=== PATIENT | female | born 1985 | race Caucasian/White ===

== ENCOUNTER 2021-03-29 10:48 | Emergency (ER) | payer BC, SELFPAY ==
--- NOTE | 2021-03-29 10:59 | ED.SKABFB ---
HPI - Skin/Abscess/Foreign Bdy General Chief complaint: Skin/Abscess/Foreign Body Stated complaint: Bump on Arm Time Seen by Provider: 03/29/21 10:59 Source: patient and RN notes reviewed Mode of arrival: ambulatory Limitations: no limitations History of Present Illness HPI narrative: 35-year-old female presents to the [facility] with complaints of a bump to her arm. Patient states she has had a bump on her arm for approximately 2 years, left upper arm just distal to the deltoid. Area is approximately 2 x 2 cm. For the last day or so turned red, painful. States she has had the similar episode in the past and was given antibiotics. Has an appointment with [facility] dermatology in [place] in 2 weeks Related Data Allergies Allergy/AdvReac Type Severity Reaction Status Date / Time No Known Allergies Allergy Verified 03/29/21 10:51 Review of Systems Review of Systems: All systems reviewed & are unremarkable except as noted in HPI and below Constitutional: Constitutional: Reports no additional constitutional complaints, Denies chills and Denies fever(s) Eyes: Eyes: Reports no additional eye complaints ENT: Reports system reviewed and no additional complaints, except as documented Cardiovascular: Cardiovascular: Reports no additional cardiovascular complaints Respiratory: Respiratory: Reports no additional respiratory complaints Gastrointestinal: Gastrointestinal: Reports no additional gastrointestinal complaints Musculoskeletal: Musculoskeletal: Reports no additional musculoskeletal complaints and Denies back pain Integumentary/Breasts: Skin/Breast: Reports as per HPI, Reports erythema and Denies rash Neurologic: Reports system reviewed and no additional complaints, except as documented, Denies vertigo, Denies dizziness and Denies headache(s) Psychiatric: Psychiatric: Reports no additional psychiatric complaints Allergic/Immunologic: Allergic/Immunologic: Reports no additional allergic/immunologic complaints [facility] Past Medical History Medical History (Updated 03/29/21 @ 19:13 by Raiza eTnorio) No significant medical problems Surgical History Surgical History (Updated 03/29/21 @ 19:13 by Raiza Tenorio) Hx of cholecystectomy 10/2020 Family History Family History Father Family history of elevated blood lipids Family history of diabetes mellitus in first degree relative Social History Social History Smoking status: Never smoker Alcohol intake: never Comments At the time of my signature, I reviewed and agree with the nursing past medical, surgical, social, and family history. There is no relevant family history pertinent to the patient complaint. Exam Const: General: healthy appearing, no acute distress and alert Nutritional Appearance: well nourished and obese Orientation/consciousness: patient oriented x3 Limitations: no limitations and altered mental status HENMT: Head: normal to inspection Ears: external ears normal Eyes: Conjunctivae: conjunctivae normal Pupils: Equal, round and reactive pupils present Neck: Neck: normal visual inspection, no lymphadenopathy and no meningeal signs Chest: Chest palpation & inspection: normal inspection of the chest Resp: Effort & Inspection: normal respiratory effort and no use of accessory muscles Auscultation: clear to auscultation bilaterally Cardio: Rate: regular rate Rhythm: regular rhythm Back/Spine/Pelvis: Back: no CVA tenderness Skin: General skin exam: normal color Rashes: no rashes Wounds: no wounds Other: Redness and cystlike structure left upper arm just distal to the deltoid measuring 2 x 2 cm. Warm to touch. No fluctuant area Neuro: General: patient oriented x3, moves all extremities, no meningeal signs and no focal motor deficits Speech: normal speech Gait exam (Neuro): Normal gait present Extrem: General: normal to
[2021-03-29 11:01] VITALS: BP 136/91; PULSE 82; RESP 16; TEMP 36.5; O2SAT 100
== END 2021-03-29 11:18 | disposition home or self-care (01) ==
PROVIDERS: Emergency Provider Nurse Practitioner
DX: L72.9 Follicular cyst of the skin and subcutaneous tissue, unspecified (principal); L03.114 Cellulitis of left upper limb
CPT/HCPCS: 99213; G0463

== ENCOUNTER 2022-06-24 09:54 | Emergency (ER) | payer BC, SELFPAY ==
--- NOTE | ~2022-06-24 | XR_ITS ---
XR chest 2V DATE: 06/24/2022 11:14 INDICATION: Productive cough, fever TECHNIQUE: PA and lateral views COMPARISON: 07/18/2013 PA and lateral chest FINDINGS: Surgical clips, right upper quadrant, consistent with cholecystectomy. Normal heart size. No hilar or mediastinal enlargement. No pulmonary infiltrate or consolidation, ple ural effusion or pulmonary vascular congestion or pneumothorax. IMPRESSION: No active cardiopulmonary disease Reviewed, dictated and finalized at location A. OR ARCHITECT/DESIGN MANAGER
[2022-06-24 10:01] VITALS: BP 126/79; PULSE 100; RESP 16; TEMP 39.3; O2SAT 99
--- NOTE | 2022-06-24 10:52 | ED.URI ---
HPI - URI/Sore Throat General Chief Complaint: Upper Respiratory Infection Stated Complaint: chest congestion Time Seen by Provider: 06/24/22 10:52 Source: patient, RN notes reviewed and old records reviewed Mode of arrival: ambulatory Limitations: no limitations History of Present Illness HPI Narrative: 29-year-old female presents to the [facility] with complaints of chest congestion fevers, wheezing since Monday, 2 days. Denies chest pain or shortness of breath. Related Data Home Medications Medication Instructions Recorded Confirmed Lactobacillus rhamnosus GG 15 1 cap PO DAILY 06/24/22 06/24/22 billion cell sprinkle capsule (Culturelle) cholecalciferol (vitamin D3) 25 25 mcg PO DAILY 06/24/22 06/24/22 mcg (1,000 unit) chewable tablet Allergies Allergy/AdvReac Type Severity Reaction Status Date / Time No Known Allergies Allergy Verified 06/24/22 10:15 Review of Systems Review of Systems: All systems reviewed & are unremarkable except as noted in HPI and below Constitutional: Constitutional: Reports as per HPI, Denies chills and Reports fever(s) Eyes: Eyes: Reports no additional eye complaints ENT: Reports as per HPI and Reports nasal congestion Cardiovascular: Cardiovascular: Reports no additional cardiovascular complaints Respiratory: Respiratory: Reports as per HPI, Denies chest congestion, Reports cough and Denies dyspnea Gastrointestinal: Gastrointestinal: Reports no additional gastrointestinal complaints Musculoskeletal: Musculoskeletal: Reports no additional musculoskeletal complaints Integumentary/Breasts: Skin/Breast: Reports system reviewed and no additional complaints, except as docu Neurologic: Reports system reviewed and no additional complaints, except as documented Psychiatric: Psychiatric: Reports no additional psychiatric complaints Allergic/Immunologic: Allergic/Immunologic: Reports no additional allergic/immunologic complaints [facility] Past Medical History Medical History (Updated 06/24/22 @ 11:46 by Raiza Tenorio APRN) No significant medical problems Surgical History Surgical History Hx of cholecystectomy 10/2020 Family History Family History Father Family history of elevated blood lipids Family history of diabetes mellitus in first degree relative Social History Social History Smoking status: Never smoker Alcohol intake: never Comments At the time of my signature, I reviewed and agree with the nursing past medical, surgical, social, and family history. There is no relevant family history pertinent to the patient complaint. Exam Const: General: comfortable, no acute distress, well developed, alert, ill appearing (mild) acutely and well nourished Nutritional Appearance: well nourished Orientation/consciousness: patient oriented x3 Limitations: no limitations HENMT: Head: normal to inspection Ears: external ears normal, TM's normal bilaterally and EAC's normal Face/Nose/Sinus: Normal external nose present and Normal nares present Face and sinus: normal facial exam and sinuses nontender Throat: posterior oropharynx normal and uvula midline Eyes: General: appearance normal, both eyes and all related structures Pupils: Equal, round and reactive pupils present Neck: Neck: normal visual inspection, full ROM, no lymphadenopathy and no meningeal signs Chest: Chest palpation & inspection: normal inspection of the chest Resp: Effort & Inspection: normal respiratory effort and no use of accessory muscles Auscultation: clear to auscultation bilaterally, no crackles, no rales, no rhonchi and wheezes expiratory wheezes (Right middle, right lower) Cardio: Rate: regular rate Rhythm: regular rhythm Back/Spine/Pelvis: Cervical Spine: cervical ROM normal and No Cervical spine tenderness Thoracic
[2022-06-24 10:55] VITALS: TEMP 39.3
[2022-06-24] MEDS: ACETAMINOPHEN 500 MG TABLET 1000 MG PO (10:55)
[2022-06-24 11:57] VITALS: PULSE 121; TEMP 38.4; O2SAT 96
== END 2022-06-24 11:57 | disposition home or self-care (01) ==
PROVIDERS: Emergency Provider Nurse Practitioner
DX: J40 Bronchitis, not specified as acute or chronic (principal)
CPT/HCPCS: 71046; 87804; 99213; A9270; G0463

== ENCOUNTER 2025-05-28 01:35 | Day surgery (SDC) | payer BC, SELFPAY ==
[2025-05-21 11:03] VITALS: BMI 36.1
--- NOTE | 2025-05-21 11:10 | PC.NURSE ---
[facility] has started construction of its new state of the art ER which will open Spring 2026. With this, we anticipate parking may be a challenge for some our surgical patients and families. Parking spaces are limited but are available for all Surgical, obstetrics, and ER patients sharing this lot. If you arrive and find you are having a hard time finding a parking space, please note that we understand the challenges, please drive around the hospital and park near Hospital Entrance 1. When you enter this entrance, you can ask a volunteer to direct or take you back to the surgical waiting area to check in. We appreciate everyone?s understanding of these expected challenges while we build for your future. Report to the Outpatient Waiting Room, entrance under the green pavilion located off [address], at time _0600_ on date _[id number]_. Planned Procedure Time: _0730_.? Time changes happen often and if your time is changed the preop area will call you the afternoon before. - You and your visitor will be asked to self-screen and do not enter if you have any COVID symptoms. Please call surgeon if you need to reschedule. - A mask is optional within the hospital at this time. Patients may have clear liquids (water, carbonated beverages, clear teas, apple juice) until 3 hours prior to surgery with a maximum of 20 ounces. - No food from midnight until time of surgery and no smoking, or chewing tobacco (or any form of nicotine). No chewing gum, candy or mints. Take only the following medications with a SIP of water on the morning of surgery: _Thyroid___ DO NOT STOP ANY OF YOUR OTHER PRESCRIPTION MEDICATIONS PRIOR TO SURGERY EXCEPT THE FOLLOWING Hold all vitamins and supplements for 3 days per anesthesiologist. Medications to discontinue per physician Skip Dose of Semaglutide this week. Date to take last dose Please no make-up, nail kiswahili, hairspray, perfume, deodorant, or body powder the day of surgery.? No jewelry (including any body piercings) or valuables the day of surgery, leave them at home.? Please take a shower or bath the night before, or the morning of, surgery with an antibacterial soap.? Wear comfortable, loose fitting clothing.? - Jewelry must be removed prior to entering the operating room.? Rings and piercings that are not removed may be cut off. - The hospital will not accept responsibility for valuables.? - Please leave all valuables, including medications, at home the day of surgery. If you are going home after surgery, a licensed four horse hitch driver must drive you home.? - NO public transportation without another adult if you receive anesthesia. - We recommend that an adult stay with you for 24 hours following discharge. - We also recommend that you do not drive, make important decision, drink alcoholic beverages, or take any drugs that were not prescribed by your health care provider for at least 24 hours after your discharge time. Follow any additional instructions given to you from your surgeon. Telephone instructions given to _Amy___and asked if any additional questions and then verbalized understanding. Patient advised to call surgeon office or pre surgery nurse liaison [phone] if any additional questions.
[2025-05-28] VITALS (11 sets, daily range): BP systolic 110–124; BP diastolic 58–75; PULSE 72–96; RESP 12–16; TEMP 36.5–37; O2SAT 98–100; BMI 36.7
--- OUTSIDE RECORDS SUMMARY | 2025-05-28 01:39 | XMS_ITS | Encounter Summary ---
Author Organization [facility] Facility Care Team Providers Care Product Scientist Name Role Phone No, Physician Primary Care Provider [phone] Chapo Angel DO Primary Care Provider + Chapo Angel DO Primary Care Provider + Lisa Barker MD Primary Care Provider [phone] Chapo Angel DO Primary Care Provider + Encounter Details Date Type Department Care Team (Latest Contact Info) Description 01/03/2018 Orders Only [facility] ProviderAndres MD [address] [place] [id number] Social History Tobacco Use Types Packs/Day Years Used Date Smoking Tobacco: Never Assessed Comments Unknown Sex and Gender Information Value Date Recorded Sex Assigned at Not on file Legal Sex Female 10:25 AM CDT Gender Identity Female 04/02/2019 12:48 PM CDT Sexual Orientation Not on file documented as of this encounter Plan of Treatment Not on file documented as of this encounter Procedures Procedure Name Priority Date/Time Associated Diagnosis Comments SCAN - PATHOLOGY 01/05/2018 12:0 0 AM CDT documented in this encounter Results * SCAN - PATHOLOGY (01/05/2018 12:00 AM CDT) Narrative 01/05/2018 12:00 AM CDT Ordered by an unspecified provider. Historical Provider Final Res ult documented in this encounter Visit Diagnoses Not on filedocumented in this encounter Additional Health Concerns Infection Onset Date Last Indicated Resolved Time COVID: Suspected 05/04/2024 05/04/2024 05/04/2024 2:56 PM CDT documented as of this encounter Care Teams Product Scientist Relationship Specialty Start Date End Date No, Physician PCP - General 03/14/18 01/23/19 Chapo Angel DO PCP - General 01/25/19 02/20/20 Chapo Angel DO PCP - General 01/24/19 01/24/19 Lisa Barker MD PCP - General 02/21/20 07/03/20 Chapo Angel DO PCP - General 07/04/20 documented as of this encounter
--- OUTSIDE RECORDS SUMMARY | 2025-05-28 01:39 | XMS_ITS | Clinical Summary ---
Author Organization [facility] at the [facility] Office Center Address [address] [place] [address] Care Team Providers Care Drapery Hand Name Role Phone JerseyTien Primary Care Provider + Allergies No known active allergies Medications cholecalciferol (VITAMIN D-3) 5,000 unit capsule Take 1 capsule (5,000 Units total) by mouth daily Active multivitamin capsule Take 1 capsule by mouth daily Active acidophilus-pectin , citrus 100 million cell-10 mg capsule Take by mouth towerman before breakfast Active thyroid (ARMOUR THYROID) 30 mg tablet 1 tablet (30 mg total) daily Active vitamin B complex capsule Take 1 capsule by mouth daily Active norethindrone (MICRONOR) 0.35 mg tabletIndications: Contraception Take 1 tablet (0.35 mg total) by mouth daily Active semaglutide (OZEMPIC) 0.25 mg or 0.5 mg(2 mg/1.5 mL) pen injector injection Inject 0.25 mg under the skin every 7 days Active ketorolac (TORADOL) 10 mg tablet Take 1 tablet (10 mg total) by mouth every 6 (six) hours as needed for pain 20 tablet 5 Active lidocaine (LIDODERM) 5 %Indications:Pain Place 1 patch on the skin daily for 12 hours Use patch for 12 hours on, 12 hours off. 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 This sounds viral. We will await the COVID test. Overall she is already improving we will go from there Annual physical exam 12/24/2020 Assessment & Plan (12/24/2020 3:16 PM CDT): Cbc Chem 7 Lipid lft tsh ua lh fsh Abnormal menses 12/24/2020 Assessment & Plan (12/24/2020 3:18 PM CDT): See Dr. 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 Barker Proteinuria 12/21/2018 Hypoalbuminemia 12/21/2018 Hemorrhagic cystitis 12/21/2018 Hemorrhagic cystitis 04/20/2018 Resolved Problems Problem Noted Date Diagnosed Date Resolved Date Hypoalbuminemia 01/10/2018 02/06/2019 Membranous glomerulonephritis 01/10/2018 02/06/2019 Nephrotic syndrome 01/01/2018 9 Obesity complicating pregnan cy in third trimester 09/11/2017 02/06/2019 Encounters Date Type Department Care Team Description 04/17/2025 9:55 AM CDT Lab [facility] [address] [place] [address] Membranous glomerulonephritis; Proteinuria, unspecified type; Nephrotic syndrome 04/17/2025 Results Follow-Up [facility] Nephrology at [place] [address] [place] [phone] Lisa Barker MD CBC with auto differential, Urinalysis reflex to microscopic and culture Urine, clean voided, Renal function panel, Additional followed-up results: 5 04/14/2025 6:48 PM CDT - 04/14/2025 7:32 PM CDT Emergency [facility] Emergency Department [address] [place] [address] Head injury, initial encounter (Primary Dx); Acute pain of left shoulder Discharge Disposition: Discharge to home or self care 03/21/2025 Telephone [facility] Nephrology at [address] [place] [address] Lisa Barker MD from Last 3 Months Immunizations Immunization Administration Dates Next Due Influenza, Unspecified 04/30/2022(Deferred: Ashley ent decision) Tdap 10/09/2017,11/13/2014 Surgical History Surgery Date Site/Laterality Comments CHOLECYSTECTOMY 10/16/2020 Medical History Medical History Date Comments Membranous glomerulonephritis Nephrotic syndrome Hypoalbuminemia Hemorrhagic cystitis Gallstones Family History Medical History Relation Name Comments Diabetes Father Heart disease Father Stroke Maternal Grandmother Relation Name Status Comments Father Maternal Grandmother Social History Tobacco Use Types Packs/Day Years Used Date Smoking Tobacco: Never Smokeless Tobacco: Never Tobacco Cessation:Counseling Given: Not Answered Alcohol Use Standard Drinks/Week Comments Not Currently 0 (1 standard drink = 0.6 oz pur e alcohol) AUDIT-C Answer Date Recorded Q1: How often do you have a drink containing alc ohol? Monthly or less 10/25/2022 Average Number of Drinks Not on file 023 Frequency of Binge Drinking Not on file 09/29 PHQ-2 Answer Date Recorded PHQ-2 Total Score (If total score is 3 or more points, staff should administer the PHQ-9) 0 08/23/2022 Personal Safety Answer Date Recorded Have you ever been in or are you currently in a harmful physical or emotional relationship or is someone making you feel afraid or unsafe? Denies 04/14/2025 Comments No Sex and Gender Information Value Date Recorded Sex Assigned at Not on file Legal Sex Female 10:25 AM CDT Gender Identity Female 04/02/2019 12:48 PM CDT Sexual Orientation Not on file Obstetrics History Para Term AB IAB SAB Ectopic Multiple Livin g Live Births 2 2 2 2 Date Outcome GA Total Labor Labor/2nd/3rd Weight Sex Type Anes PTL Thania A1 A5 Name Clin Term Term Last Filed Vital Signs Vital Sign Reading Time Taken Comments Blood Pressure 122/76 04/14/2025 6:40 PM CDT Pulse 75 04/14/2025 6:40 PM CDT Temperature 37.2 C (99 F) 04/14/2025 4:29 PM CDT Respiratory Rate 16 04/14/2025 6:40 PM CDT Oxygen Saturation 100% 04/14/2025 6:40 PM CDT Inhaled Oxygen Concentration - - Weight 106.7 kg (235 lb 3.7 oz) 04/14/2025 4:29 PM CDT Height 170.2 cm (5' 7) 04/14/2025 4:29 PM CDT Body Mass Index 36.84 04/14/2025 4:29 PM CDT Plan of Treatment Health Maintenance Due Date Last Done Comments Varicella Vaccines (1 of 2 - 13+ 2-dose series) 1997 Pneumococcal vaccine <65 (1 of 2 - PCV) 2003 HPV Vaccines (1 - 3-dose SCDM series) 2011 Cervical Cancer Screening 04/26/2018 04/26/2017 Breast Cancer Screening-Mammogram 01/22/2019 018 Regular Well Visit/Exam 18-64 12/24/2021 12/24/2020 Depression Screening 08/23/2023 08/23/2022 Covid-19 Vaccine ( - season) 2025, 11/26/2020 Influenza Vaccine (#1) 2025 DTaP/Tdap/Td Vaccine (4 - Td or Tdap) 10/10/2027 10/09/2017, 11/13/2014, 07/31/2014 Hepatitis B Screening Completed 01/02/2018 Hepatitis C Screening Completed 01/02/2018, 017 Procedures Procedure Name Priority Date/Time Associated Diagnosis Comments EGFR Routine 04/17/2025 10:00 AM CDT Proteinuria, unspecified type Nephrotic syndrome Membranous glomerulonephritis DIFFERENTIAL AUTO Routine 04/17/2025 10: 00 AM CDT Membranous glomerulonephritis Proteinuria, unspecified type Nephrotic syndrome RENAL FUNCTION PANEL Routine 04/17/2025 10:00 AM CDT Proteinuria, unspecified type Nephrotic syndrome Membranous glomerulonephritis CBC WITH AUTO DIFFERENTIAL Routine 04/17/2025 10:00 AM CDT Membranous glomerulonephritis Proteinuria, unspecified type Nephrotic syndrome URINALYSIS, MICROSCOPIC ONLY Routine 04/17/2025 9:57 AM CDT Membranous glomerulonephritis Proteinuria, unspecified type Nephrotic syndrome PROTEIN / CREATININE RATIO, URINE, RANDOM Routine 04/17/2025 9:57 AM CDT Proteinuria, unspecified type Nephrotic syndrome Membranous glomerulonephritis URINE CULTURE Routine 04/17/2025 9:57 AM CDT URINALYSIS AND REFLEX TO MICROSCOPIC AND CULTURE Routine 04/17/2025 9:57 AM CDT Membranous glomerulonephritis Proteinuria, unspecified type Nephrotic syndrome CT FACIAL BONES WO CONTRAST ED 04/14/2025 5:[address] HEAD WO CONTRAST ED 04/14/2025 5 :07 PM CDT XR SHOULDER LEFT 2 OR MORE VIEWS ED 04/14/2025 4:58 PM CDT SCREENING MAMMOGRAM 2D BILATERAL Routine 01/22/2018 10:10 AM CDT HEPATITIS PANEL, ACUTE Routine 01/02/2018 8:40 AM CDT THINPREP IMAGING PAP AND HPV MRNA E6/E7, CHLAMYDIA/N.GONORRH OEAE Routine 04/26/2017 11:46 AM CDT from Last 3 Months or Most Recently Relevant to Health Maintenance Results * eGFR (04/17/2025 10:00 AM CDT) eGFR 82 >=60 mL/min/1. 73 m2 Comment: Interpretive Data Reference Interval Normal >/= 90 mL/min/1.73m2 Mildly decreased* 60 - 89 mL/min/1.73m2 Mildly to moderately decreased 45 - 59 mL/min/1.73m2 Moderately to severely decreased 30 - 44 mL/min/1.73m2 Severely decreased 15 - 29 mL/min/1.73m2 Kidney Failure < 15 mL/min/1.73m2 *Relative to young adult level Estimated glomerular filtration rate is determined by the 2020 CKD-EPI equation recommended by the National Kidney Foundation (A Unifying Approach to GFR Estimation: Recommendations of the NKF-ASK Task Force on Reassessing the Inclusion of Race in Diagnosing Kidney Disease, JASN 2020). The CKD-EPI equation should not be used for patients with unstable renal function and has not been validated in children and those over 70. Current interpretive data was last reviewed 2021. Blood 04/17/2025 10:0 0 AM CDT 04/17/2025 10:10 AM CDT Lisa Barker MD LAB BLOOD ORDERABLES Final Result [place] [id number] Department [place] [address] * Differential, auto (04/17/2025 10:00 AM CDT) Neutrophil abs 3.55 1.50 - 6.50 K/cumm Imm gran abs 0.01 0.00 - 0.10 K/cumm [facility] Lymphocyte abs 2.39 0.80 - 3.30 K/cumm [facility] Monocyte abs 0.46 0.20 - 0.80 K/cumm [facility] Eosinophil abs 0.28 0.00 - 0.50 K/cumm [facility] Basophil abs 0.06 0.00 - 0.10 K/cumm [facility] Neutrophil pct 52.7 % [facility] Comment: Interpretive Data Percent cell count reference ranges are not reported, since discordance with absolute values may lead to misinterpretation of CBC data. Current Interpretive Data was last revised on 2017. Imm gran pct 0.1 % [facility] Comment: Interpretive Data Percent cell count reference ranges are not reported, since discordance with absolute values may lead to misinterpretation of CBC data. Current Interpretive Data was last revised on 2017. Lymphocyte pct 35.4 % [facility] Comment: Interpretive Data Percent cell count reference ranges are not reported, since discordance with absolute values may lead to misinterpretation of CBC data. Current Interpretive Data was last revised on 2017. Monocyte pct 6.8 % [facility] Comment: Interpretive Data Percent cell count reference ranges are not reported, since discordance with absolute values may lead to misinterpretation of CBC data. Current Interpretive Data was last revised on 2017. Eosinophil pct 4.1 % [facility] Comment: Interpretive Data Percent cell count reference ranges are not reported, since discordance with absolute values may lead to misinterpretation of CBC data. Current Interpretive Data was last revised on 2017. Basophil pct 0.9 % [facility] Comment: Interpretive Data Percent cell count reference ranges are not reported, since discordance with absolute values may lead to misinterpretation of CBC data. Current Interpretive Data was last revised on 2017. Blood 04/17/2025 10:0 0 AM CDT 04/17/2025 10:10 AM CDT Lisa Barker MD LAB BLOOD ORDERABLES Final Result [facility] [address] Department [place] [address] * CBC with auto differential (04/17/2025 10:00 AM CDT) WBC 6.75 3.80 - 9.90 K/cumm Hgb 13.2 11.9 - 15.5 g/dL [facility] Hct 40.2 35.6 - 45.5 % [facility] Plt 262 150 - 400 K/cumm [facility] MPV 11.7 9.1 - 12.3 fL [facility] RBC 4.51 3.90 - 5.20 M/cumm [facility] MCV 89.1 81.3 - 96.4 fL [facility] MCH 29.3 27.1 - 33.3 pg [facility] MCHC 32.8 32.3 - 35.7 g/dL [facility] RDW CV 13.3 11.1 - 14.9 % [facility] RDW SD 43.6 35.7 - 48.1 fL [facility] NRBC abs 0.00 0.00 - 0.01 K/cumm [facility] Blood 04/17/2025 10:0 0 AM CDT 04/17/2025 10:10 AM CDT Lisa Barker MD LAB BLOOD ORDERABLES Final Result [facility] [address] Department [place] [address] * (ABNORMAL) Renal function panel (04/17/2025 10:00 AM CDT) Sodium 138 135 - 145 mmol/L Potassium, pl 4.1 3.3 - 4.9 mmol/L [facility] Chloride 108 97 - 110 mmol/L [facility] CO2 20(L) 22 - 32 mmol/L [facility] Anion gap 10 2 - 15 mmol/L [facility] BUN 11 6 - 25 mg/dL [facility] Creatinine 0.91 0.60 - 1.10 mg/dL [facility] Glucose 89 70 - 199 mg/dL [facility] Comment: Interpretive Data Fasting glucose >/= 126 mg/dl is diagnostic for diabetes. Fasting is defined as no caloric intake for at least 8 hours. Fasting glucose between 100 mg/dl to 125 mg/dl is diagnostic of prediabetes. In a patient with classic symptoms of hyperglycemia or hyperglycemic crisis, a random glucose >/= 200 mg/dl is diagnostic for diabetes. In the absence of unequivocal hyperglycemia, results should be confirmed by repeat testing. The classification and Diagnosis of Diabetes Diabetes Care 202; 46: S19-S40. Current interpretive data was last revised 2022. Calcium 9.1 8.5 - 10.3 mg/dL [facility] Phosphorus, pl 3.8 2.3 - 4.5 mg/dL [facility] Albumin 3.7 3.5 - 5.0 g/dL [facility] Blood 04/17/2025 10:0 0 AM CDT 04/17/2025 10:10 AM CDT Result [facility] Lisa Barker MD LAB BLOOD ORDERABLES Final Result [facility] [address] [place] [address] * (ABNORMAL) Urinalysis reflex to microscopic and culture Urine, clean voided (04/17/2025 9:57 AM CDT) Color, ur Yellow Yellow Clarity, ur Cloudy(A) Clear [facility] Specific gravity, ur 1.020 1.003 - 1.030 [facility] pH, urine 5.5 [facility] Comment: Interpretive Data U rine pH is affected by diet, medications, systemic acid-base disturbances, and renal tubular function. pH may affect urinary stone formation. For example, urine pH below 6.0 may help reduce the tendency for calcium phosphate stones and pH greater than 6.0 may reduce the tendency for uric acid stone formation. Source: [facility] Current Interpretive Data was last revised on 2017 Protein, ur ql Negative Negative [facility] Glucose, ur ql Negative Negative [facility] Ketones, ur Negative Negative [facility] Bilirubin, ur Negative Negative [facility] Blood, ur 3+(A) Negative [facility] Urobilinogen, ur <2.0 <2.0 mg/dL [facility] Nitrite, ur Negative Negative [facility] Leukocyte esterase, ur 4+(A) Negative [facility] UA reflex comment Reflex to microscopic UA will be performed. [facility] Urine, clean voided 04/17/2025 9:57 AM CDT 04/17/2025 10:10 AM CDT Lisa Barker MD LAB MICROBIOLOGY - GENERAL ORDERABLES Final Result [facility] [address] Department [place] [address] * Protein / creatinine ratio, urine, random (04/17/2025 9:57 AM CDT) Protein, ur, quant 11.0 mg/dL Comment: Interpretive Data No reference range established. Current interpretive data was last revised 2018. Creatinine Ur 188.0 mg/dL [facility] Comment: Interpretive Data No reference range established. Current interpretive data was last revised 2018. Protein/creatinin e ratio 58.5 0.0 - 180.0 mg/g CR [facility] Urine 04/17/2025 9:57 AM CDT 04/17/2025 10:10 AM CDT Lisa Barker MD LAB URINE ORDERABLES Final Result Performing Organization Address [facility] Co de Phone Number [facility] [address] [employer] [place] [address] * (ABNORMAL) Urinalysis, microscopic only (04/17/2025 9:57 AM CDT) Pathologist [facility] WBC, ur >50(A) 0 - 5 /HPF RBC, ur 21-50(A) 0 - 2 /HPF [facility] Epithelial cells, squamous, ur 1-5 0 - 5 /HPF [facility] Bacteria, ur Trace(A) [facility] Mucous, ur Present(A) [facility] Culture Reflex Comment Reflex to urine culture will be performed. [facility] Urine, clean voided 04/17/2025 9:57 AM CDT 04/17/2025 10:10 AM CDT Lisa Barker MD LAB URINE ORDERABLES Final Result Performing Organization Address City/[facility] Co de Phone Number [address] [employer] [place], [place] [id number] * Urine culture Urine, clean voided (04/17/2025 9:57 AM CDT) Pathologist [facility] Report Final Report: Less than 100,000 colonies/mL (clinically insignificant growth based on current clinical standards) Comment:Testing performed by : [facility], [address] [facility] [place] [address] Organism (CLINICALLY INSIGNIFICANT GROWTH [facility] Urine, clean voided 04/17/2025 9:57 AM CDT 04/17/2025 2:27 PM CDT Narrative [facility] - 04/18/2025 3:06 PM CDT Urine culture reflexed based upon urinalysis results. Testing performed by [facility] Microbiology Laboratory ([phone]) Lisa Barker MD LAB MICROBIOLOGY - GENERAL ORDERABLES Final Result [facility] [address] Department [place] [address] * CT Facial Bones WO Contrast (04/14/2025 5:07 PM CDT) Anatomical Region Laterality Modality Head and Neck N/A Computed Tomogra phy 04/14/2025 6:27 PM CDT Narrative 04/14/2025 6:30 PM CDT EXAM DESCRIPTION: CT FACIAL BONES WO CONTRAST REASON FOR STUDY: Facial trauma, blunt c/o head injury today. 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 Pt states when she open the doors to the WC bus, the lift fell out and his her on the LT side of her face and top of LT shoulder. Pt having pain to those areas now TECHNIQUE: Noncontrast computed tomography images through the paranasal sinuses. Reconstructed MPR images reviewed. All images stored on PACS. Automated exposure control was used as a dose optimization technique for this examination. COMPARISON: None FINDINGS: BONES: No fracture or bone lesion. SOFT TISSUES: No abscess. No inflammatory changes. SINUSES: Mucosal thickening bilateral maxillary sinuses. There is fluid and/or mucosal thickening in the bilateral ethmoid and sphenoid sinuses. NASAL CAVITY: Midline nasal septum. ORBITS: No significant abnormalities visualized. TMJ: Normal. MASTOIDS: Well-aerated. IACs symmetric, grossly normal. BRAIN: Limited view. No acute findings. OTHER: No other significant finding. IMPRESSION: No CT evidence of facial bone fracture. THIS IS AN ELECTRONICALLY VERIFIED FINAL REPORT 04/14/2025 6:30 PM - Electronically signed by Diogenes Luna M.D. KT: JERED Report ID: [id number] Reading Location: [id number] Procedure Note Diogenes Luna MD - 04/14/2025 EXAM DESCRIPTION: CT FACIAL BONES WO CONTRAST REASON FOR STUDY: Facial trauma, blunt c/o head injury today. 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 Pt having pain to thoseareas now TECHNIQUE: Noncontrast computed tomography images through the paranasal sinuses. Reconstructed MPR images reviewed. All images stored on PACS. Automated exposure control was used as a dose optimization technique forthis examination. COMPARISON: None FINDINGS: BONES: No fracture or bone lesion. SOFT TISSUES: No abscess. No inflammatory changes. SINUSES: Mucosal thickening bilateral maxillary sinuses. There is fluid and/or mucosal thickening in the bilateral ethmoid and sphenoid sinuses. NASAL CAVITY: Midline nasal septum. ORBITS: No significant abnormalities visualized. TMJ: Normal. MASTOIDS: Well-aerated. IACs symmetric, grossly normal. BRAIN: Limited view. No acute findings. OTHER: No other significant finding. IMPRESSION: No CT evidence of facial bone fracture. THIS IS AN ELECTRONICALLY VERIFIED FINAL REPORT 04/14/2025 6:30 PM - Electronically signed by Diogenes Luna M.D. KT: JERED Report ID: [id number] Reading Location: [id number] Jeannette Marion NP IMG CT PROCEDURES Final Result * CT Head WO Contrast (04/14/2025 5:07 PM CDT) Anatomical Region Laterality Modality Head and Neck N/A Computed Tomogra phy 04/14/2025 6:30 PM CDT Narrative 04/14/2025 6:35 PM CDT EXAM DESCRIPTION: CT HEAD WO CONTRAST REASON FOR STUDY: Facial trauma, blunt c/o head injury today. 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 Pt states when she open the doors to the WC bus, the lift fell out and his her on the LT side of her face and top of LT shoulder. Pt having pain to those areas now TECHNIQUE: Axial images acquired through the brain without intravenous contrast. Images stored on PACS. Automated exposure control was used as a dose optimization technique for this examination. COMPARISON: None FINDINGS: BRAIN: No hemorrhage, edema or mass effect. No recent infarct. Normal white matter. EXTRA-AXIAL SPACES: No fluid collections. No masses. CALVARIUM: No fracture. SINUSES/MASTOIDS: No fluid or mucosal thickening. ORBITS: No significant abnormality. OTHER: No other significant abnormality. IMPRESSION: No acute intracranial findings. THIS IS AN ELECTRONICALLY VERIFIED FINAL REPORT 04/14/2025 6:35 PM - Electronically signed by Diogenes Luna M.D. KT: JERED Report ID: [id number] Reading Location: [place] [address] Procedure Note Diogenes Luna MD - 04/14/2025 EXAM DESCRIPTION: CT HEAD WO CONTRAST REASON FOR STUDY: Facial trauma, blunt c/o head injury today. 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 Pt having pain to thoseareas now TECHNIQUE: Axial images acquired through the brain without intravenous contrast. Images stored on PACS. Automated exposure control was used asa dose optimization technique for this examination. COMPARISON: None FINDINGS: BRAIN: No hemorrhage, edema or mass effect. No recent infarct. Normal white matter. EXTRA-AXIAL SPACES: No fluid collections. No masses. CALVARIUM: No fracture. SINUSES/MASTOIDS: No fluid or mucosal thickening. ORBITS: No significant abnormality. OTHER: No other significant abnormality. IMPRESSION: No acute intracranial findings. THIS IS AN ELECTRONICALLY VERIFIED FINAL REPORT 04/14/2025 6:35 PM - Electronically signed by Diogenes Metcalf.D. KT: JERED Report ID: [id number] Reading Location: [id number] Jeannette Marion CALENDER LET OFF OPERATOR IMG CT PROCEDURES Final Result * XR Shoulder Left 2+ views (04/14/2025 4:58 PM CDT) Anatomical Region Laterality Modality Upper Extremities, Shoulder Left Comp uted Radiography 04/14/2025 6:24 PM CDT Narrative 04/14/2025 6:27 PM CDT EXAM DESCRIPTION: XR SHOULDER LEFT 2 OR MORE VIEWS REASON FOR STUDY: pain Pt arrives by EMS from scene with c/o head injury today. 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 Pt states when she open the doors to the WC bus, the lift fell out and his her on the LT side of her face and top of LT shoulder. Pt having pain to those areas now. Abrasion noted to LT shoulder. Pt denies LOC. Pt does have COOPER that radiates down into her LT jaw TECHNIQUE: 4 radiographic view(s) of the left shoulder . COMPARISON: None FINDINGS: BONES/JOINTS: There is no acute fracture, malalignment or osseous abnormality. The joint spaces are normal. SOFT TISSUES: Within normal limits. IMPRESSION: No acute osseous abnormality. THIS IS AN ELECTRONICALLY VERIFIED FINAL REPORT 04/14/2025 6:27 PM - Electronically signed by Diogenes Luna M.D. KT: JERED Report ID: [id number] Reading Location: [id number] Procedure Note Diogenes Luna MD - 04/14/2025 EXAM DESCRIPTION: XR SHOULDER LEFT 2 OR MORE VIEWS REASON FOR STUDY: pain Pt arrives by EMS from scene with c/o head injury today. 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 Pt states when she open the doors to the [employer] bus, the lift fell out and his her on the LT side of her face and top ofLT shoulder. Pt having pain to those areas now. Abrasion noted to LTshoulder. Pt denies LOC. Pt does have COOPER that radiates down into her LT jaw TECHNIQUE: 4 radiographic view(s) of the left shoulder . COMPARISON: None FINDINGS: BONES/JOINTS: There is no acute fracture, malalignment orosseous abnormality. The joint spaces are normal. SOFT TISSUES: Within normal limits. IMPRESSION: No acute osseous abnormality. THIS IS AN ELECTRONICALLY VERIFIED FINAL REPORT 04/14/2025 6:27 PM - Electronically signed by Diogenes Luna M.D. KT: JERED Report ID: [id number] Reading Location: [place] [address] [address] Saritha Marion CALENDER LET OFF OPERATOR IMG XR PROCEDURES Final Result * Screening Mammogram 2D Bilateral (01/22/2018 10:10 AM CDT) Anatomical Region Laterality Modality Breast Bilateral Mammography 01/22/2018 10:1 0 AM CDT Impressions 01/22/2018 5:05 PM CDT BI-RAD 1 NEGATIVE There is no mammographic evidence of malignancy. A 7 year screening mammogram is recommended. The patient has been or will be contacted. The patient will be entered into a reminder system with a target due date of age 39 for her next mammogram, unless otherwise warranted by the [employer] Practice Parameter for the Performance of Screening and Diagnostic Mammography. Electronically signed by: Dr. Dane Barlow M.D. nh/:01/22/2018 17:04:18 Vertical Contour Band Saw Operator: Taylor RICHARDSON(Abel)(M), [facility] letter sent: Normal Exam Reading location: [facility] BI-RADS: 1 Negative [EOD] Narrative 01/22/2018 5:05 PM CDT - MG BILATERAL DIGITAL SCREENING MAMMOGRAM WITH MEDIOLATERAL OBLIQUE CRANIOCAUDAL: 01/22/2018 The study was acquired using full field digital technology and interpreted from soft copy. CLINICAL: Baseline mammogram. Denies any problems today. No personal history of breast cancer. No family history of breast cancer. COMPARISONS: None. BREAST TISSUE: There are scattered areas of fibroglandular density. FINDINGS: No significant masses, calcifications, or other findings are seen in either breast. Procedure Note Provider, Andres, - 12/16/2020 - MG BILATERAL DIGITAL SCREENING MAMMOGRAM WITH MEDIOLATERAL OBLIQUECRANIOCAUDAL: 01/22/2018 The study was acquired using full field digital technology and interpretedfrom soft copy. CLINICAL: Baseline mammogram. Denies any problems today. No personalhistory of breast cancer. No family history of breast cancer. COMPARISONS: None. BREAST TISSUE: There are scattered areas of fibroglandular density. FINDINGS: No significant masses, calcifications, or other findings areseen in either breast. IMPRESSION: BI-RAD 1 NEGATIVE There is no mammographic evidence of malignancy. A 7 year screeningmammogram is recommended. The patient has been or will be contacted. The patient will be entered into a reminder system with a target due dateof age 39 for her next mammogram, unless otherwise warranted by the [employer] Practice Parameter for the Performance of Screeningand Diagnostic Mammography. Electronically signed by: Dr. Dane Barlow M.D. nh/:01/22/2018 17:04:18 Vertical Contour Band Saw Operator: Taylor RICHARDSON(R)(M), [facility] letter sent: Normal Exam Reading location: [facility] BI-RADS: 1 Negative [EOD] us Destiny Brenner MD IM MAMMO PROCEDURES Final R esult * Hepatitis panel, acute (01/02/2018 8:40 AM CDT) HepBsAg NONREACT NONREACTIVE Comment: Siem[employer] CentaurXP using KARLA (chemiluminescent immunoassay) technology. NONREACTIVE: IgM antibodies to Hepatitis B Surface antigen not detected. REACTIVE: IgM antibodies to Hepatitis B Surface antigen detected. Reactive results will be confirmed by neutralization testing. HBsAb qn < 3.10 mIU/mL Comment: Siemens CentaurXP using KARLA (chemiluminescent immunoassay) technology. 9.99 IU/L or less.....NONREACTIVE: IgM antibodies to Hepatitis B Surface antibody are not detected. 10.00 IU/L or greater..REACTIVE: IgM antibodies to Hepatitis B Surface antibody are detected. Hep B core IgM NONREACT NONREACTIVE 8 12:52 PM CDT [facility] HISTORICAL RESULTS Comment: Siemens CentaurXP using KARLA (chemiluminescent immunoassay) technology. NONREACTIVE: IgM antibodies to Hepatitis B Core antigen not detected. EQUIVOCAL: IgM antibodies to Hepatitis B Core antigen may or may not be present. Obtain a new specimen and retest. REACTIVE: IgM antibodies to Hepatitis B Core antigen detected. Hep A IgM NONREACT NONREACTIVE Comment: Siemens CentaurXP using KARLA (chemiluminescent immunoassay) technology. NONREACTIVE: IgM antibodies to Hepatitis A not detected. This does not exclude possibility of exposure to Hepatitis A or early acute infection. EQUIVOCAL:IgM antibodies to Hepatitis A may or may not be present. Suggest recollection and retest. REACTIVE: Antibodies to Hepatitis A detected. Hep C Ab NONREACT NONREACTIVE Comment: Siemens CentaurXP using KARLA (chemiluminescent immunoassay) technology. NONREACTIVE: Antibodies to Hepatitis C not detected. This does not exclude early acute Hepatitis C infection, possibility of exposure to Hepatitis C, antibodies below detection limit, or to lack of antibody reactivity to the antigen used in this assay. EQUIVOCAL: Antibodies to Hepatitis C may or may not be present. Sample to be confirmed by real-time PCR method. REACTIVE: Antibodies to Hepatitis C detected. 01/02/2018 8:40 AM CDT 01/02/2018 9:00 AM CDT Jb Abdullahi MD LAB MICROBIOLOGY - GENERAL O RDERABLES Final Result [facility] HISTORICAL RESULTS * ThinPrep Imaging Pap and HPV mRNA E6/E7, Chlamydia/N.Gonorrhoeae (04/26/2017 11:46 AM CDT) CLINICAL INFORMATION [facility] HISTORICAL RESULTS Comment:Information not prov ided LMP: 02/23/17 [facility] HISTORICAL RESULTS PREV. PAP: [facility] HISTORICAL RESULTS Comment:FIRST PAP PREV. BX: [facility] HISTORICAL RESULTS Comment:CALENDER LET OFF OPERATOR SOURCE: [facility] HISTORICAL RESULTS Comment:Cervix, Endocervix STATEMENT OF ADEQUACY: [facility] HISTORICAL RESULTS Comment:Satisfactory for tyrell luation. Endocervical/transformation zone component present. INTERPRETATION/RES ULT: [facility] HISTORICAL RESULTS Comment:Negative for intraep ithelial lesion or malignancy. COMMENT: [facility] HISTORICAL RESULTS Comment:This Pap test has be en evaluated with computer assisted technology. DRILLING FIELD OPERATOR: [facility] HISTORICAL RESULTS Comment:AMW, CT(ASCP) CT scr eening location: [place] [address] [place] [address] HPV mRNA E6/E7 Not Detected Not Detected [facility] HISTORICAL RESULTS Comment: This test was performed using the APTIMA HPV Assay ([employer] This assay detects E6/E7 viral messenger RNA (mRNA) from 14 high-risk HPV types (16,18,31,33,35,39,45,51,52,56,58,59,66,68). C. trachomatis RNA NOT DETECTED NOT DETECTED [facility] HISTORICAL RESULTS N. gonorrhoeae RNA NOT DETECTED NOT DETECTED [facility] HISTORICAL RESULTS COMMENT [facility] HISTORICAL RESULTS Comment: This test was performed using the APTIMA COMBO2 Assay ([employer] The analytical performance characteristics of this assay, when used to test SurePath specimens have been determined by [employer]. 04/26/2017 11:4 6 AM CDT 05/01/2017 11:30 AM CDT Narrative [facility] HISTORICAL RESULTS - 05/01/2017 11:12 AM CDT 0 PERFORMING LAB: JOEL [employer] [place] [address] [facility] [id number] Alysa Ng MD Lore Rincon MD LAB PATHOLOGY ORDERABLES Final Result [facility] HISTORICAL RESULTS from Last 3 Months or Most Recently Relevant to Health Maintenance Insurance [employer] Address: [id number] [place] [address] [employer] Address: [place] [address] [employer] Address: [address] [place] [address] Care Teams Drapery Hand Relationship Specialty Start Date End Date Tien Angel DO PCP - General 07/04/20
--- OUTSIDE RECORDS SUMMARY | 2025-05-28 01:39 | XMS_ITS | Data Portability ---
Author Organization [facility] Address [address] [place] [address] Assessment No assessment recorded. Plan of Treatment Reminders Order Date Submit Date Provider Last Modified By Organization Details Last Modified Time Details Appointments SURG Hysterosc opy 2024 07:30A Tea PEPPER MD Not available Not available Not available SURG POST OP 2024 10:30A Tea PEPPER MD Not available Not available Not available Lab TSH, serum or plasma 2024 025 [facility] (Lab), [address], [place], [address], 03/12/2025 16:29:59 testoster one free/test osterone total, ratio, serum 2024 025 [facility] (Lab), [address], [place], [address], 03/12/2025 16:30:01 hormone panel, serum or plasma 2024 025 [facility] (Lab), [address] [place], [address], 03/12/2025 16:30:00 prolactin , serum 2024 025 [facility] (Lab), [address], [place], [address], 03/12/2025 16:29:59 progester one, serum 2024 025 [facility] (Lab), [address] [facility], [place], [address], 03/12/2025 16:29:59 dhea-sulf ate, serum 2024 025 [facility] (Lab), [address] [facility], [place], [address], 03/12/2025 16:29:58 CBC w/ auto diff 2024 025 [facility] (Lab), [address] [facility], [place], [address], 03/12/2025 16:29:58 HbA1c (hemoglob in A1c), blood 2024 025 [facility] (Lab), [address] [facility], [place], [address], 03/12/2025 16:30:00 CMP, serum or plasma 2024 025 [facility] (Lab), [address] [facility], [place], [address], 03/12/2025 16:29:58 Referral None recorded. Procedures None recorded. Surgeries hysterosc opy, with endometri al ablation (SURG) 2024 025 [facility], [address], [address], 04/04/2025 18:47:31 salpingec zuly, laparosco pic (SURG) 2024 025 [facility], [address], [place], [address], 04/04/2025 16:47:44 Imaging US, pelvis 2024 025 [email or web address] [place], [address], [address], [place], [address], 03/11/2025 19:39:34 US, transvagi nal 2024 025 [email or web address] [place], [address], [address], [place], [address], 03/11/2025 19:39:34 Medication Orders None recorded. Patient TargetsNo targets recorded. Patient InstructionsNo instructions recorded. Reason for Referral None Reported. Results Created Date Observation Date Name Description Value Unit Range Abnormal Flag Note LastModifiedBy Organization Detail LastModifiedTime 03/06/2003/06/2025 CBC W/DIF F WBC 6.2 10'3/ uL 3.5-10 .5 Not Available [facility] (Lab) [address], [place], [address], 03/12/2025 16:29:58 03/06/20 25 03/06/2025 CBC W/DIF F RBC 4.53 10'6/ uL (based on docume nted legal sex) 3.80-5 .20 Not Available [facility] (Lab) [address], [place], [address], 03/12/2025 16:29:58 03/06/20 25 03/06/2025 CBC W/DIF F HGB 13.7 g/dL (based on docume nted legal sex) 11.6-1 5.4 Not Available [facility] (Lab) [address], [place], [address], 03/12/2025 16:29:58 03/06/20 25 03/06/2025 CBC W/DIF F HCT 42.0 % (based on docume nted legal sex) 34.0-4 5.0 Not Available [facility] (Lab) [address] [place], [address], 03/12/2025 16:29:58 03/06/20 25 03/06/2025 CBC W/DIF F MCV 92.7 fL 80.0-9 9.0 Not Available [facility] (Lab) [address] [place], [address], 03/12/2025 16:29:58 03/06/20 25 03/06/2025 CBC W/DIF F MCH 30.2 pg 27.0-3 4.0 Not Available [facility] (Lab) [address] [facility], [place], [address], 03/12/2025 16:29:58 03/06/20 25 03/06/2025 CBC W/DIF F MCHC 32.6 g/dL 32.0-3 5.5 Not Available [facility] (Lab) [address] [facility], [place], [address], 03/12/2025 16:29:58 03/06/20 25 03/06/2025 CBC W/DIF F RDW 13.9 % 11.0-1 5.0 Not Available [facility] (Lab) [address] [facility], [place], [address], 03/12/2025 16:29:58 03/06/20 25 03/06/2025 CBC W/DIF F plt 265 10'3/ uL 150-40 0 Not Available [facility] (Lab) [address] [facility], [place], [address], 03/12/2025 16:29:58 03/06/20 25 03/06/2025 CBC W/DIF F MPV 12.3 fL 8.8-12 .1 high Not Available [facility] (Lab) [address] [facility], [place], [address], 03/12/2025 16:29:58 03/06/20 25 03/06/2025 CBC W/DIF F NRBC's 0.0 % 0.0 Not Available [facility] (Lab) [address] [facility], [place], [address], 03/12/2025 16:29:58 03/06/20 25 03/06/2025 CBC W/DIF F absolute NRBCs 0.0 10'3/ uL no refere nce range establ ished Not Available [facility] (Lab) [address] [facility], [place], [address], 03/12/2025 16:29:58 03/06/20 25 03/06/2025 CBC W/DIF F neutrophils 56.4 % 34.0-7 3.0 Not Available [facility] (Lab) [address] [facility], [place], [address], 03/12/2025 16:29:58 03/06/20 25 03/06/2025 CBC W/DIF F lymphocytes 33.1 % 15.0-5 0.0 Not Available [facility] (Lab) [address] [facility], [place], [address], 03/12/2025 16:29:58 03/06/20 25 03/06/2025 CBC W/DIF F monocytes 6.5 % 1.0-15 .0 Not Available [facility] (Lab) [address] [facility], [place], [address], 03/12/2025 16:29:58 03/06/20 25 03/06/2025 CBC W/DIF F eosinophils 2.7 % 0.0-8. 0 Not Available [facility] (Lab) [address] [facility], [place], [address], 03/12/2025 16:29:58 03/06/20 25 03/06/2025 CBC W/DIF F basophils 1.1 % 0.0-2. 0 Not Available [facility] (Lab) [address] [facility], [place], [address], 03/12/2025 16:29:58 03/06/20 25 03/06/2025 CBC W/DIF F immature granulocytes 0.2 % no define d refere nce range Immat ure Granu locyt es (IG) repre sents autom ated enume ratio n of Metam yeloc ytes, Myelo cytes and Promy elocy nicky when IG is < 5%. Blast s are not inclu ded in IG and repor deejay separ ately if prese nt. Not Available [facility] (Lab) [address] [facility], [place], [address], 03/12/2025 16:29:58 03/06/20 25 03/06/2025 CBC W/DIF F absolute neutrophils 3.5 10'3/ uL 1.5-8. 0 Not Available [facility] (Lab) [address], [place], [address], 03/12/2025 16:29:58 03/06/20 25 03/06/2025 CBC W/DIF F absolute lymphocytes 2.1 10'3/ uL 1.0-4. 0 Not Available [facility] (Lab) [address] [facility], [place], [address], 03/12/2025 16:29:58 03/06/20 25 03/06/2025 CBC W/DIF F absolute monocytes 0.4 10'3/ uL 0.2-1. 0 Not Available [facility] (Lab) [address], [place], [address], 03/12/2025 16:29:58 03/06/20 25 03/06/2025 CBC W/DIF F absolute eosinophils 0.2 10'3/ uL 0.0-0. 6 Not Available [facility] (Lab) [address], [place], [address], 03/12/2025 16:29:58 03/06/20 25 03/06/2025 CBC W/DIF F absolute basophils 0.1 10'3/ uL 0.0-0. 3 Not Available [facility] (Lab) [address] [facility], [place], [address], 03/12/2025 16:29:58 03/06/20 25 03/06/2025 CBC W/DIF F absolute immature granulocytes 0.0 10'3/ uL 0.00-0 .10 Refer ence range s for nonbi nary/ inter sex or unspe cifie d gende r patie nts have not been estab lishe d. Pleas e refer [facility] for range s estab lisanastasia d for cisge nder patie nts and evalu ate in the clini carmen tio xt of the indiv idual patie nt: https :[email or web address] hall book. nm.or g/gen derx Not Available [facility] (Lab) [address] [facility], [place], [address], 03/12/2025 16:29:58 03/06/20 25 03/06/2025 CMP(C OMPRE HENSI VE METAB OLIC PANEL ) sodium 140 mmol/ L 133-14 6 Not Available [facility] (Lab) [address] [facility], [place], [address], 03/12/2025 16:29:58 03/06/20 25 03/06/2025 CMP(C OMPRE HENSI VE METAB OLIC PANEL ) potassium 4.1 mmol/ L 3.5-5. 1 Not Available [facility] (Lab) [address] [facility], [place], [address], 03/12/2025 16:29:58 03/06/20 25 03/06/2025 CMP(C OMPRE HENSI VE METAB OLIC PANEL ) chloride 106 mmol/ L 98-107 Not Available [facility] (Lab) [address] [facility], [place], [address], 03/12/2025 16:29:58 03/06/20 25 03/06/2025 CMP(C OMPRE HENSI VE METAB OLIC PANEL ) carbon dioxide 27 mmol/ L 21-31 Not Available [facility] (Lab) [address] [facility], [place], [address], 03/12/2025 16:29:58 03/06/20 25 03/06/2025 CMP(C OMPRE HENSI VE METAB OLIC PANEL ) anion gap 7 mmol/ L 4-13 Not Available [facility] (Lab) [address] [place], [address], 03/12/2025 16:29:58 03/06/20 25 03/06/2025 CMP(C OMPRE HENSI VE METAB OLIC PANEL ) blood urea nitrogen 12 mg/dL 7-25 Not Available [facility] (Lab) [address] [facility], [place], [address], 03/12/2025 16:29:58 03/06/20 25 03/06/2025 CMP(C OMPRE HENSI VE METAB OLIC PANEL ) creatinine 0.81 mg/dL 0.60-1 .30 Not Available [facility] (Lab) [address] [facility], [place], [address], 03/12/2025 16:29:58 03/06/20 25 03/06/2025 CMP(C OMPRE HENSI VE METAB OLIC PANEL ) egfrcr (CKD-epi 2020) >90 mL/mi n/1.7 3_m2 >=60 Not Available [facility] (Lab) [address] [facility], [place], [address], 03/12/2025 16:29:58 03/06/20 25 03/06/2025 CMP(C OMPRE HENSI VE METAB OLIC PANEL ) calcium 9.8 mg/dL 8.3-10 .5 Not Available [facility] (Lab) [address] [facility], [place], [address], 03/12/2025 16:29:58 03/06/20 25 03/06/2025 CMP(C OMPRE HENSI VE METAB OLIC PANEL ) glucose 74 mg/dL 70-100 Not Available [facility] (Lab) [address] [facility], [place], [address], 03/12/2025 16:29:58 03/06/20 25 03/06/2025 CMP(C OMPRE HENSI VE METAB OLIC PANEL ) protein, total 6.2 g/dL 6.4-8. 3 low Not Available [facility] (Lab) [address] [facility], [place], [address], 03/12/2025 16:29:58 03/06/20 25 03/06/2025 CMP(C OMPRE HENSI VE METAB OLIC PANEL ) albumin 3.9 g/dL 3.5-5. 0 Not Available [facility] (Lab) [address] [facility], [place], [address], 03/12/2025 16:29:58 03/06/20 25 03/06/2025 CMP(C OMPRE HENSI VE METAB OLIC PANEL ) ALT 15 units /L 9-43 Not Available [facility] (Lab) [address] [facility], [place], [address], 03/12/2025 16:29:58 03/06/20 25 03/06/2025 CMP(C OMPRE HENSI VE METAB OLIC PANEL ) alkaline phosphatase 53 units /L 34-104 Not Available [facility] (Lab) [address] [facility], [place], [address], 03/12/2025 16:29:58 03/06/20 25 03/06/2025 CMP(C OMPRE HENSI VE METAB OLIC PANEL ) AST 16 units /L 13-39 Not Available [facility] (Lab) [address] [facility], [place], [address], 03/12/2025 16:29:58 03/06/20 25 03/06/2025 CMP(C OMPRE HENSI VE METAB OLIC PANEL ) bilirubin, total 0.3 mg/dL 0.2-1. 2 Not Available [facility] (Lab) [address] [place], [address], 03/12/2025 16:29:58 03/06/20 25 03/06/2025 DHEA SULFA TE DHEA-sulfate 87 ug/dL Femal e Range s Age(y ) Range (ug/d L) 10-15 34-28 0 15-20 65-36 8 20-25 148-4 07 25-35 99-34 0 35-45 61-33 7 45-55 35-25 6 55-65 19-20 5 65-75 9-246 > 75 12-15 4 Not Available [facility] (Lab) [address] [facility], [place], [address], 03/12/2025 16:29:58 03/06/20 25 03/06/2025 TSH, REFLE X FREE T4 TSH 2.68 uIU/m L 0.30-5 .33 Not Available [facility] (Lab) [address], [place], [address], 03/12/2025 16:29:59 03/06/20 25 03/06/2025 PROGE STERO NE progesterone 1.45 NG/mL This assay was perfo rmed using [employer] ratio n reage nts and test kits. Value s obtai luz with other assay metho ds or kits canno t be used inter smith eay . Femal e Proge stero ne Range s: Folli cular phase 0.06- 0.89 ng/mL Ovula tion phase 0.12- 12.00 ng/mL Lutea l phase 1.83- 23.90 ng/mL Postm enopa usal <0.05 -0.13 ng/mL Healt hy Pregn ant Women 1st Trime ster 11.0- 44.30 2nd Trime ster 25.40 -83.3 0 3rd Trime ster 58.70 -214. 00 Not Available [facility] (Lab) [address] [facility], [place], [address], 03/12/2025 16:29:59 03/06/20 25 03/06/2025 PROLA CTIN prolactin, total 17.60 NG/mL 4.79-2 3.30 This assay was perfo rmed using [employer] ratio n reage nts and test kits. Value s obtai luz with other assay metho ds or kits canno t be used inter smith eay . Not Available [facility] (Lab) [address] [facility], [place], [address], 03/12/2025 16:29:59 03/06/20 25 03/06/2025 FSH, LH, ESTRA DIOL estradiol 386.0 pg/mL This assay was perfo rmed using [employer] reage nts and test kits. Value s obtai luz with other assay metho ds or kits canno t be used inter [facility] . Femal e Estra diol Range s: Folli cular phase 12.4- 233 pg/mL Ovula tion phase 41.0- 398 pg/mL Lutea l phase 22.3- 341 pg/mL Postm enopa usal <5-13 8 pg/mL Healt hy Pregn ant Women 1st Trime ster 154-3 243 pg/mL 2nd Trime ster 1561- 18177 pg/mL 3rd Trime ster 8525- >3000 0 pg/mL Not Available [facility] (Lab) [address] [place], [address], 03/12/2025 16:30:00 03/06/20 25 03/06/2025 FSH, LH, ESTRA DIOL FSH 5.8 mIU/m L This assay was perfo rmed using [employer] ratio n reage nts and test kits. Value s obtai luz with other assay metho ds or kits canno t be used inter [facility] . Femal es Folli cular : 3.5-1 2.5 mIU/m L Ovula tion: 4.7-2 1.5 mIU/m L Lutea l: 1.7-7 .7 mIU/m L Postm enopa use: 25.8- 134.8 mIU/m L Not Available [facility] (Lab) [address] [place], [address], 03/12/2025 16:30:00 03/06/20 25 03/06/2025 FSH, LH, ESTRA DIOL LH 8.1 mIU/m L This assay was perfo rmed using [employer] reage nts and test kits. Value s obtai luz with other assay metho ds or kits canno t be used inter [facility] . Femal es Mid-F ollic ular: 2.4-1 2.6 mIU/m L Mid-C ycle: 14.0- 95.6 mIU/m L Mid-L uteal : 1.0-1 1.4 mIU/m L Postm enopa use: 7.7-5 8.5 mIU/m L Not Available [facility] (Lab) [address], [place], [address], 03/12/2025 16:30:00 03/06/20 25 03/06/2025 HEMOG LOBIN A1C hemoglobin A1C 5.1 % 4.0-5. 6 The Ameri can Diabe nicky Assoc iatio n recom mends that a prima ry goal of thera py shoul d be a HBA1C of < 7% and that physi cians shoul d reeva luate the treat ment regim en in patie nts with HBA1C value s consi stent ly > 8%. <5.7% Moraima l 5.7 - 6.4% Incre ased risk for diabe nicky >=6.5 % Diagn ostic of diabe nicky <7.0% Goal of thera py >8.0% Actio n sugge sted Not Available [facility] (Lab) [address], [place], [address], 03/12/2025 16:30:00 03/06/20 25 03/06/2025 TESTO STERO NE, FREE( DIALY SIS) AND TOTAL (LC/M S/MS) testosterone , total 26 NG/dL 2-45 For addit ional infor violet banks e refer to http: //[facility] kassi lundque stdia gnost ics.c om/fa q/ Total Testo stero neLCM SMSFA Q165 (This link is being provi ded for infor foreign nal/ educa clyde l purpo ses only. ) This test was devel oped and its brian tical perfo rmanc e antonella cteri stics have been deter mined by [facility] kostas Baueri [place]. It has not been clear ed or appro tru by the U.S. Food and Drug Admin istra tion. This assay has been valid ated pursu ant to the CLIA regul ation s and is used for clini carmen purpo ses. Not Available [facility] (Lab) [address] [facility], [place], [address], 03/12/2025 16:30:01 03/06/20 25 03/06/2025 TESTO STERO NE, FREE( DIALY SIS) AND TOTAL (LC/M S/MS) testosterone , free 2.0 pg/mL 0.1-6. 4 This test was devel karsten and its brian tical perfo rmanc e antonella cteri stics have been deter mined by [employer] kostas s [place], [place]. It has not been clear ed or appro tru by the U.S. Food and Drug Admin istra tion. This assay has been valid ated pursu ant to the CLIA regul ation s and is used for clini carmen purpo ses. Perfo rming Organ izati on Infor matio n: Site ID: [id number] Name: [employer] ostyuli s [facility] Addre ss: [id number] [place], [place] Direc tor: Sam Stevens MD PhD Not Available [facility] (Lab) [address] [facility], [place], [address], 03/12/2025 16:30:01 03/11/20 25 03/11/2025 US, pelvi s No observ ation record ed. [facility] [address], [place], [address], 03/11/2025 18:12:51 03/11/2003/11/2025 US, trans vagin al No observ ation record ed. [facility] [address], [place], [address], 03/11/2025 18:13:00 03/11/20 25 03/11/2025 US, pelvi s No observ ation record ed. [email or web address] [id number], [place], [address], 03/19/2025 13:12:17 Result Notes None recorded. Procedures Surgical History Date Name Laterality Status Provider Name and Address Organization Details Recorded Time 07/31/19 20 Cholecystectomy completed [facility] 03/06/2025 12:37:44 Imaging Results None recorded. Procedure Notes None recorded. Medical Equipment None Reported. Allergies No known drug allergies Medications Name Sig Start Date Stop Date Status Note LastModified by Organization Details LastModified Time [facility] Thyroid 60 mg tablet TAKE 1 TABLET BY MOUTH DAILY ON AN EMPTY STOMACH active Not Available Not Available No t Available metformin 500 mg tablet TAKE 1 TABLET BY MOUTH DAILY active Not Available Not Available No t Available progesterone micronized 200 mg capsule TAKE 1 CAPSULE BY MOUTH AT BEDTIME active Not Available Not Available No t Available [facility] Thyroid 30 mg tablet TAKE 1 TABLET BY MOUTH IN THE MORNING AND 30 MINUTES BEFORE EATING ON AN EMPTY STOMACH 03/06 completed Not Available Not Available Not Available progesterone micronized 100 mg capsule TAKE 1 CAPSULE BY MOUTH AT NIGHT 03/06 completed Not Available Not Available Not Available amoxicillin 875 mg-potassium clavulanate 125 mg tablet TAKE 1 TABLET BY MOUTH EVERY 12 HOURS 03/06 completed Not Available Not Available Not Available neomycin 3.5 mg/g-polymyx in B 10,000 unit/g-dexam eth 0.1 % eye oint APPLY SMALL AMOUNT TO THE EYELID EVERY NIGHT AT BEDTIME 03/06 completed Not Available Not Available Not Available semaglutide (weight loss) active Not Available Not Available Not Available Omnipod 5 G6-G7 Pods (Gen 5) subcutaneous cartridge CHANGE EVERY 48 HOURS active Not Available Not Available No t Available Vitals Date Recorded Body weight Body mass index (BMI) Body height Systolic And Diastolic Provider Name and Address Organization Details Last Updated DateTime 03/06/2025 655041.39 g 37.1 kg/m2 170.18 cm 111/73 mm[Hg] [facility] 03/06/2025 12:33:47 Date Recorded Body height Body mass index (BMI) Body weight Systolic And Diastolic Provider Name and Address Organization Details Last Updated DateTime 03/19/2025 170.18 cm 36.5 kg/m2 800090.3 g 110/76 mm[Hg] [facility] 03/19/2025 12:26:30 Date Recorded Body height Body mass index (BMI) Body weight Systolic And Diastolic Provider Name and Address Organization Details Last Updated DateTime 04/04/2025 170.18 cm 37 kg/m2 783793.8 g 130/81 mm[Hg] Dayana Salo [facility] 04/04/2025 12:01:34 Social History Question Answer Notes LastModified by Organizat ion Details LastModified Time Tobacco Smoking Status Never Smoker Marilee Masterson ivette, [facility] 03/06/2025 12:36:47 Are You Blind Or Do You Have Difficulty Seeing? No Information n ot available 03/06/2025 What Is Your Level Of Caffeine Consumption? Moderate [email or web address] Information not available 03/06/2025 In The 14 Days Before Symptom Onset, Have You Had Close Contact With A Laboratory-confirm ed COVID-19 While That Case Was Ill? No [email or web address] Information n ot available 03/06/2025 In The 14 Days Before Symptom Onset, Have You Had Close Contact With A Person Who Is Under Investigation For COVID-19 While That Person Was Ill? No [email or web address] Information not available 03/06/2025 Have You Been To An Area Known To Be High Risk For COVID-19? No [email or web address] Information not available 03/06/2025 Are You Deaf Or Do You Have Serious Difficulty Hearing? No [email or web address] Information not available 03/06/2025 What Type Of Diet Are You Following? REGULAR [email or web address] Information n ot available 03/06/2025 What Is The Highest Grade Or Level Of School You Have Completed Or The Highest Degree You Have Received? [id number] [email or web address] Information not available 03/19/2025 Are There Any Guns Present In Your Home? No [email or web address] Information not available 03/19/2025 Do You Use Protection During Sex? No [email or web address] Information not available 03/06/2025 Do You Use Your Seat Belt Or Car Seat Routinely? Yes [email or web address] Information not available 03/06/2025 Are You Sexually Active? Yes [email or web address] Information not available 03/06/2025 Do You Have Smoke And Carbon Monoxide Detectors In Your Home? Yes [email or web address] Information not available 03/06/2025 How Much Tobacco Do You Smoke? No [email or web address] Information not available 03/19/2025 Do You Use Sunscreen Routinely? Yes [email or web address] Information not available 03/06/2025 Have You Used IV Drugs? No [email or web address] Information not available 03/19/2025 Do You Have Difficulty Walking Or Climbing Stairs? No [email or web address] Information not available 03/06/2025 Sex: Unknown Functional Status Question Answer Note LastModified by Organizat ion Details LastModified Time Do you use any illicit or recreational drugs? No Information not available 03/19/2025 What is your level of alcohol consumption? 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 YESWOREST [email or web address] Information not available 03/06/2025 Are you able to care for yourself independently? 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 No Information not available 03/06/2025 What is your exercise level? Moderate [email or web address] Information not available 03/19/2025 Mental Status Question Answer Note LastModified by Organization D etails LastModified Time Do you feel stressed (tense, restless, nervous, or anxious, or unable to sleep at night)? [id number] [email or web address] Information not available 04/04/2025 Family History Relationship Description Onset Age of this Age Resolved Age Notes LastModified by Organization Details LastModified Time Father Heart disease [email or web address] Not available 2024 12:36:01 Father Diabetes mellitus [email or web address] Not available 2024 12:36:11 Father Hypercholest [email or web address] Not available 2024 12:36:28 Father Essential hypertension [email or web address] Not available 0 04/04/2025 11:25:56 Mother Hypercholest erolemia [email or web address] Not available 2024 12:36:28 Medical History Condition Response Allergies (Food, seasonal, environmental ) N Other N Breast Cancer N Drug/Latex Allergies/Reactions N Blood Transfusion N Dermatologic Disorders N Lung Disease N Defects or Inherited Disease N Breast Problem N Gestational Diabetes N Hematologic disorders N Anesthesia Complications N History of STI N Deep Vein Thrombosis N Polycystic ovary syndrome N Anxiety Disorder N Autoimmune disease N Arthritis N Infertility N Polyps N Acid Reflux (GERD) N History of abnormal pap N Cancer N Stroke N Varicosities N Neurologic/Epilepsy N Endometriosis N High Cholesterol N Headaches N Fibromyalgia N Kidney Disease Y Heart Problems N Kidney or Bladder Problems N Thyroid Problems N GI Problems N Eating Disorder N Anemia N Art (IVF or FET) N Psychiatric Illness N Ovarian Cancer N Diabetes N Pulmonary (TB, Asthma) N Hepatitis/Liver Disease N No Past Medical History N Eczema N Urinary Tract Infection N Abuse/Domestic Violence N Asthma N Trauma/Violence N Depression/ depression N Heart Disease N Pre-Eclampsia N Hypertension N Osteoporosis N Thrombophilias N Gynecological History Statement/Question Response Abnormal Pap N Flow Heavy Date of LMP 03/26/2025 N Was last menstrual period normal Y STIs/STDs N Duration of Flow (days) 5 Current Control Method None Age at First Child 30 Are cycles usually normal Y Frequency of Cycle (Q days) 23 Sexually Active? Y Menses Monthly Y Age of first menstrual cycle 9 Date of Last Pap Smear Sexual Problems? Y Desired Control Method Ablation LMP Definite Obstetrics History GPAL:G 2 P 2 0 0 2 Type Value Full Term 2 Living 2 Total 2 Past Encounters Encounter ID Performer Location Encounter Start Date Encounter Closed Date Diagnosis/Indication Diagnosis SNOMED-CT Code Diagnosis ICD10 Code Diagnosis IMO Codes Diagnosis Note [id number] DOREEN JUAN NP [place] [address] [address] 03/06/2025 12:17:33 03/06/2025 13:46:24 Abnormal uterine bleeding [id number] 9100 N93.9 [id number] The patient and I discussed the various causes of abnormal uterine bleeding, including polyps, fibroids, hyperplasi a, atypia, anovulatio n, etc.We reviewed the typical evaluation with labs, pelvic US and possible endometria l biopsy.Avani efly discussed the options available for treatment (depending on the results of evaluation ) such as hormonal treatment (OCPs, progestins ), Mirena, endometria l ablation, and surgery. We spent more than 30 minutes face to face.Pelvi c ultrasound and labs ordered.Chapin mota to RTO for ultrasound f/u and to discuss next steps in treatment plan. [id number] Rui Pepper MD [place] [address],[place] [address] 03/11/2025 17:14:45 03/11/2025 18:06:57 Abnormal uterine bleeding [id number] 9100 N93.9 [id number] DOREEN JUAN NP [place] [address] [address] 03/19/2025 12:19:15 03/19/2025 13:39:08 Menorrhagia [id number] N92.0 [id number] -Discussed that labs were overall normal- Pelvic ultrasound showed 2 cm hemorrhagi c appearing corpus luteum/cys t, which could be due to ovulation- Patient currently takes progestero ne 200 mg PO nightly that was prescribed by another clinic-Rev iewed all treatment options for menorrhagi a and dysmenorrh ea, including: IUD's, Patch, Ring, Pills, Nexplanon, Lysteda; Endometria l ablation (requires MD consult). We discussed if any are contraindi cated with her current health Hx.-Tyron ghosh interested in MD consult for endometria l ablation and bilateral salpingect Agnieszka ghosh scheduled- Patient to call office with any questions or concerns [id number] Rui Pepper MD [place] [address] [address] 04/04/2025 11:25:52 04/04/2025 12:27:09 Menorrhagia [id number] N92.0 [id number] This patient is a 39-year-ol d female presents for heavy vaginal bleeding. She has longstandi ng very heavy bleeding. Her menses are regular. However, they require double protection . Patient has accidents, getting blood on her bedding and clothing. Is affected work. She changes a pad or tampon every hour. She leaks blood around the pad and tampon. This bleeding has a profound impact on her quality of life and her activities of daily living. we discussed treatment options. Patient desires endometria l ablation. We agreed to proceed with endometria l ablation and bilateral salpingect amandeep /laparosco pic. The patient understand s the procedure. The procedure was described to the patient in great detail. the patient also understand s the risks. The risks were also explained in detail. She understand s that injuries May occur during surgery. She understand s these injuries can result in hospitaliz ation, more surgery, and severe illness. She understand s there is risk of hemorrhage and infection. Health Concerns Section Related Observation LastModified by Organization Detai ls LastModified Time None Recorded Concern Status LastModified by Organization Details LastModified Time None Recorded Advance Directives Directive None Recorded Payers Insurance Date Sequence Insurance Name Policy Number Policy Buitrago Covered Member ID Buitrago Member ID Guarantor Name 05/26/2025 1 NAEEM [place] (PPO[place] [id number] Chapo Lynch [id number] Rasheeda Lynch Notes Date Note Type Note Provider Name and Address Organization Details Recorded Time 03/06/2025 text/html 39 y/o female presents to establish care and to discuss heavy, painful periods. Patient reports that her cycles are regular, q28-30 days, last 4-5 days, with heavy flow and blood clots that range in size. Patient states that she also has history of ovarian cysts and feels sharp stabbing pain on right or left side each month. 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 Patient reports having pelvic ultrasound 2 years ago that showed thickened endometrium and she also had low iron levels. Patient states that she was prescribed progesterone 200 mg PO nightly over a year ago to help thin her lining and regulate her hormones; reports minimal improvement in heavy flow but has been having smaller blood clots. Patient reports feeling increased fatigue.Patient reports losing 40 lbs on semaglutide and taking thyroid, iron, and vitamin D supplement. Denies being on hormonal BC; uses condoms when sexually active. DOREEN JUAN NP [address], [place], [address], [place] [facility] 03/06/2025 13:34:20 03/19/2025 text/html 39 y/o female presents for lab and ultrasound follow-up for menorrhagia and dysmenorrhea. DOREEN JUAN NP [address], [place], [address], [facility] 03/19/2025 13:11:13 04/04/2025 text/html This patient is a 39-year-old female presents for heavy vaginal bleeding. She has longstanding very heavy bleeding. Her menses are regular. However, they require double protection. Patient has accidents, getting blood on her bedding and clothing. Is affected work. She changes a pad or tampon every hour. She leaks blood around the pad and tampon. This bleeding has a profound impact on her quality of life and her activities of daily living. we discussed treatment options. Patient desires endometrial ablation. We agreed to proceed with endometrial ablation and bilateral salpingectomy /laparoscopic. The patient understands the procedure. The procedure was described to the patient in great detail. the patient also understands the risks. The risks were also explained in detail. She understands that injuries May occur during surgery. She understands these injuries can result in hospitalization, more surgery, and severe illness. She understands there is risk of hemorrhage and infection. I spent over 30 minutes on the patient's care in total. Marilee steele, [facility] 04/04/2025 12:41:38 OBGyn Episode Ob Episode Information Episode Created Date Number of Fetuses Patient Bloodtype Patient rh Status Prepregnancy Weight lbs Domestic Partner Domestic Partner Phone Father Name Corporate Librarian Status 03/06/20 25 1 CLOSED Fetus Data First Name Last Name Admitted to NICU Weight (g) Sex Living Outcome Pediatric Complications Fetus ID Race Codes Race Delivery Type 3883.65 [id number] F Full Term [id number] Vaginal Delivery Ben Calculation Initial Ben Date Initial Exam Date Initial Exam Provider Initial Ultrasound Date Last Menstrual Period Date Ultra Sound Weeks Gestation 0 Eighteen To Twenty Week Ben Update Ultra Sound Date Fundal Height At Umbil Quickening Date Ultra Sound Latest Weeks Gestation Final Ben Confirmed By Final Ben Confirmed Date Final Ben Date Ultra Sound Latest Days Gestation 0 0 Menstrual History Last Menstrual Date Menses Monthly On Bcp Conception Prior Menses Frequency Hcg Plus Date Menarche Onset Age Delivery Information Delivery Date Delivery Type Labor Anesthesia Weeks Gestation Incision Type Labor Labor Length Hrs Delivered By Post Complications Tubal Sterilization Discharge Date Comments 5 42 Discharge Information Feeding Method Contraceptive Method Maternal HG B and HCT Levels Ob Episode Information Episode Created Date Number of Fetuses Patient Bloodtype Patient rh Status Prepregnancy Weight lbs Domestic Partner Domestic Partner Phone Father Name Corporate Librarian Status 03/06/20 25 1 CLOSED Fetus Data First Name Last Name Admitted to NICU Weight (g) Sex Living Outcome Pediatric Complications Fetus ID Race Codes Race Delivery Type 2267.96 F Full Term [id number] Vaginal Delivery Ben Calculation Initial Ben Date Initial Exam Date Initial Exam Provider Initial Ultrasound Date Last Menstrual Period Date Ultra Sound Weeks Gestation 0 Eighteen To Twenty Week Ben Update Ultra Sound Date Fundal Height At Umbil Quickening Date Ultra Sound Latest Weeks Gestation Final Ben Confirmed By Final Ben Confirmed Date Final Ben Date Ultra Sound Latest Days Gestation 0 0 Menstrual History Last Menstrual Date Menses Monthly On Bcp Conception Prior Menses Frequency Hcg Plus Date Menarche Onset Age Delivery Information Delivery Date Delivery Type Labor Anesthesia Weeks Gestation Incision Type Labor Labor Length Hrs Delivered By Post Complications Tubal Sterilization Discharge Date Comments 8 37 Discharge Information Feeding Method Contraceptive Method Maternal HG B and HCT Levels
--- OUTSIDE RECORDS SUMMARY | 2025-05-28 01:39 | XMS_ITS | Clinical Summary ---
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 Gender Identity Not on file Sexual Orientation Not on file Plan of Treatment Health Maintenance Due Date Last Done Comments Hepatitis C Virus (HCV) Screening 1984 Hepatitis B Immunization (1 of 3 - 19+ 3-dose series) 2003 Pap Smear 2005 Human Papillomavirus (HPV) Immunization (1 - 3-dose SCDM series) 2011 Cervical Cancer Screening (CCS) 2014 HPV/Cotest 2014 Influenza Immunization (#1) 2025 SARS-COV-2 Immunization (2024- season) 2025 12/18/2020, 11/26/2020 Respiratory Syncytial Virus (RSV) Immunization (Adult) (1 - 1-dose 75+ series) 2059 DTaP/Tdap/Td Immunization Discontinued 2017, 11/13/2014 TdaP Immunization Completed 10/09/2017, 11/13/2014 Meningococcal Immunization (ACWY) Aged Out No longer eligible based on patient's age to complete this topic Pneumococcal Immunization Combined Aged Out No longer eligible based on patient's age to complete this topic Rotavirus Immunization Aged Out No lo nger eligible based on patient's age to complete this topic
--- OUTSIDE RECORDS SUMMARY | 2025-05-28 01:39 | XMS_ITS | Data Portability ---
Author Organization [facility] , [facility] Address [address] [place] [address] Care Team Providers Care Special Education Resource Room Teacher Name Role Phone [facility] Slip Presser Assessment Encounter Date Assessment Date Assessment LastModified by Organization Details LastModified Time 01/05/2023 01/05/2023 Pt is new to our Practice, reports a wide variety of complaints. - Complaints of painful periods and blood clots - Increased fatigue. Hard time falling asleep. Feels anxious. 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 Lost 15 lbs in 6 months. - Decreased libido - Headaches RTC for TVUS [email or web address] Not available 01/05/2023 15:59:30 Plan of Treatment Reminders Order Date Submit Date Provider Last Modified By Organization Details Last Modified Time Details Appointments None recorded. Lab test, urine 2022 023 [email or web address] [facility], [address] [place], [address], 3 17:31:30 hemoglobin A1c, QN, blood 2022 023 [place] [employer], [address] [place], [address], 3 10:31:46 CBC w/ auto diff 2022 023 [place] [employer], [address] [place], [address], 3 11:03:08 TSH + free T4, serum 2022 023 [place] [employer] [facility], [address] [place], [address], 3 10:57:52 vitamin D, 25-hydroxy, total, serum 2022 023 [facility], [address] [facility], [place], [address], 13:06:19 Referral None recorded. Procedures None recorded. Surgeries None recorded. Imaging US, transvagina l 2022 023 [email or web address] Not available 14:44:26 Medication Orders phentermine 37.5 mg tablet 2022 023 [place] [address] [id number], [address], [place], [place], [id number], 3 13:02:05 Lysteda 650 mg tablet 2022 023 [place] [facility] #[id number], [address], [place], [place], [id number], 17:31:36 Patient TargetsNo targets recorded. Patient Instructions Encounter Date Encounter Id Patient Instructions Last Modified By Organization Details Last Modified Time 01/05/2023 [id number] pelvic pain: car e instructions [email or web address] Not available 01/05/2023 12:43:27 Reason for Referral None Reported. Results Created Date Observation Date Name Description Value Unit Range Abnormal Flag Note LastModifiedBy Organization Detail LastModifiedTime 01/07/2001/06/2023 CBC (INCL UDES DIFF/ PLT) WBC 5.5 thous and/u L 4.0 - 9.8 normal Not Available [facility] [address] [place], [address], 01/06/2023 11:03:08 01/07/20 23 01/06/2023 CBC (INCL UDES DIFF/ PLT) RBC 4.8 yonathan on/uL 3.9 - 4.9 normal Not Available [address], [address], 01/06/2023 11:03:08 01/07/20 23 01/06/2023 CBC (INCL UDES DIFF/ PLT) hemoglobin 13.3 g/dL 11.8 - 14.8 normal Not Available [address], [address], 01/06/2023 11:03:08 01/07/20 23 01/06/2023 CBC (INCL UDES DIFF/ PLT) hematocrit 43.9 % 35.5 - 44.0 normal Not Available [address], [address], 01/06/2023 11:03:08 01/07/20 23 01/06/2023 CBC (INCL UDES DIFF/ PLT) MCV 91.1 fL 82.0 - 99.0 normal Not Available [address], [address], 01/06/2023 11:03:08 01/07/20 23 01/06/2023 CBC (INCL UDES DIFF/ PLT) MCH 27.6 pg 27.2 - 32.6 normal Not Available [address], [address], 01/06/2023 11:03:08 01/07/20 23 01/06/2023 CBC (INCL UDES DIFF/ PLT) MCHC 30.3 g/dL 31.5 - 35.5 low Not Available [address], [address], 01/06/2023 11:03:08 01/07/20 23 01/06/2023 CBC (INCL UDES DIFF/ PLT) RDW-CV 15.0 % 11.5 - 14.5 high Not Available [address], [address], 01/06/2023 11:03:08 01/07/20 23 01/06/2023 CBC (INCL UDES DIFF/ PLT) platelet 266 thous and/u L 140 - 350 normal Not Available [address], [address], 01/06/2023 11:03:08 01/07/20 23 01/06/2023 CBC (INCL UDES DIFF/ PLT) MPV 11.6 fL 9.3 - 12.4 normal Not Available [address], [address], 01/06/2023 11:03:08 01/07/20 23 01/06/2023 CBC (INCL UDES DIFF/ PLT) absolute neutrophil 2.79 thous and/u L 1.90 - 7.00 normal Not Available [address], [address], 01/06/2023 11:03:08 01/07/20 23 01/06/2023 CBC (INCL UDES DIFF/ PLT) absolute lymphocyte 2.13 thous and/u L 0.70 - 4.50 normal Not Available [address], [address], 01/06/2023 11:03:08 01/07/20 23 01/06/2023 CBC (INCL UDES DIFF/ PLT) absolute monocyte 0.30 thous and/u L 0.10 - 1.30 normal Not Available [address], [address], 01/06/2023 11:03:08 01/07/20 23 01/06/2023 CBC (INCL UDES DIFF/ PLT) absolute eosinophil 0.22 thous and/u L <0.70 normal Not Available [address], [address], 01/06/2023 11:03:08 01/07/20 23 01/06/2023 CBC (INCL UDES DIFF/ PLT) absolute basophil 0.03 thous and/u L <0.20 normal Not Available [address], [address], 01/06/2023 11:03:08 01/07/20 23 01/06/2023 CBC (INCL UDES DIFF/ PLT) absolute immature granulocyte 0.01 thous and/u L <0.03 normal Not Available [address], [address], 01/06/2023 11:03:08 01/06/20 23 01/06/2023 HEMOG LOBIN A1C hemoglobin A1C 5.6 % <5.7 normal The refer ence range for HbA1c is indic ated in the table below . Sugge sted Diagn osis =6.5% Consi stent with diabe nicky 5.7 6.4% Consi stent with incre ased risk for diabe nicky (pred iabet ic) <5.7% Consi stent with the absen ce of diabe nicky Not Available [address], [address], 01/06/2023 10:31:45 01/06/20 23 01/06/2023 TSH W/ T4, FREE TSH 2.99 mIU/L 0.55 - 4.78 normal Refer ence Range Femal e aged 18-Ad ult: 0.55- 4.78 Pregn chano Refer ence Range s First Trime ster 0.26- 2.66 Secon d Trime ster 0.55- 2.73 Third Trime ster 0.43- 2.91 Not Available [address], [address], 01/06/2023 10:57:52 01/06/20 23 01/06/2023 TSH W/ T4, FREE T4, free 1.08 NG/dL 0.89 - 1.76 normal Not Available [address], [address], 01/06/2023 10:57:52 01/06/20 23 01/06/2023 VITAM IN D,25- OH,TO CARLY,I A vitamin D,25-oh,tota l,ia 26 NG/mL 30-100 low Vitam in D Statu s 25-OH Vitam in D: Defic iency : <20 ng/mL Insuf ficie ncy: 20 - 29 ng/mL Optim al: > or = 30 ng/mL For 25-OH Vitam in D testi ng on patie nts on D2-perry pplem entat ion and patie nts for whom quant itati on of D2 and D3 fract ions is requi red, the [employer] Assur eD(TM ) 25-OH VIT D, (D2,D 3), LC/MS /MS is recom chay d: order code 89980 (marjorie ents >2yrs ). See Note 1 Note 1 For addit ional infor violet banks e refer to http: //[facility] kassi rollins.Jose stDia gnost ics.c om/fa q/FAQ 199 (This link is being provi ded for infor foreign mtz/ educsaima colon purpo ses only. ) Not Available [employer] [address] [address] [place], [address], 01/06/2023 13:06:19 02/09/20 23 02/08/2023 pregn chano test, urine HCG negati ve Not Available [facility] [address] [place], [address], 02/08/2023 15:57:03 02/11/2002/08/2023 US, trans vagin al No observ ation record ed. [email or web address] [address], [place], [address], 03/16/2023 11:27:42 Result Notes None recorded. Procedures Surgical History Date Name Laterality Status Provider Name and Address Organization Details Recorded Time 7 Date of Last Pap Smear completed Pony Zero IV 02/08/2023 15:10:54 Colonoscopy completed [facility] IV 02/08/2023 15:10:56 Gall bladder completed [facility] IV 02/08/2023 15:10:56 Imaging Results None recorded. Procedure Notes None recorded. Medical Equipment None Reported. Allergies No known drug allergies Medications Name Sig Start Date Stop Date Status Note LastModified by Organization Details LastModified Time prednisone 20 mg tablet TAKE 2 TABLETS BY MOUTH DAILY FOR 3 DAYS THEN TAKE 1 TABLET BY MOUTH DAILY FOR 3 DAYS 01/05 completed Not Available Not Available Not Available phentermine 37.5 mg tablet TAKE 1/2 TABLET BY MOUTH TWICE DAILY active Not Available Not Available No t Available doxycycline monohydrate 100 mg tablet TAKE 1 TABLET BY MOUTH TWICE DAILY 01/05 completed Not Available Not Available Not Available albuterol sulfate HFA 90 mcg/actuati on aerosol inhaler INHALE 2 PUFFS BY MOUTH FOUR TIMES DAILY NEEDED FOR SHORTNESS OF BREATH OR WHEEZING 01/05 completed Not Available Not Available Not Available amoxicillin 875 mg-potassiu m clavulanate 125 mg tablet TAKE 1 TABLET BY MOUTH TWICE DAILY FOR 7 DAYS 01/05 completed Not Available Not Available Not Available tranexamic acid 650 mg tablet TAKE 2 TABLETS BY MOUTH THREE TIMES DAILY NEEDED active Not Available Not Available No t Available Vitals Date Recorded Body weight Body temperature Body mass index (BMI) Body height Systolic And Diastolic Provider Name and Address Organization Details Last Updated DateTime 01/05/2023 846291.1 9 g 98.1 [degF] 42 kg/m2 170.18 cm 122/78 mm[Hg] Bethany Macias [employer] 12:28:49 Date Recorded Body height Body mass index (BMI) Body weight Body temperature Provider Name and Address Organization Details Last Updated DateTime 02/08/2023 170.18 cm 43 kg/m2 326140.46 g 97.6 [degF] Magui Lackey [employer] 02/08/2023 16:12:26 Social History Question Answer Notes LastModified by Organizat ion Details LastModified Time Tobacco Smoking Status Never Smoker Bethanyangelina Macias [facility] [employer] 01/05/2023 12:26:35 Are You Blind Or Do You Have Difficulty Seeing? No Information not available 02/08/2023 Are You Deaf Or Do You Have Serious Difficulty Hearing? No Information not available 02/08/2023 What Type Of Diet Are You Following? REGULAR [email or web address] Information not available 01/05/2023 How Many Children Do You Have? 2 Information not available 02/08/2023 What Is Your Relationship Status? [email or web address] Information not available 01/05/2023 Are You Sexually Active? Yes [email or web address] Information not available 01/05/2023 Sex: Female Functional Status Question Answer Note LastModified by Organizat ion Details LastModified Time Do you use any illicit or recreational drugs? No Information not available 02/08/2023 Do you or have you ever used any other forms of tobacco or nicotine? No Information not available 02/08/2023 What is your level of alcohol consumption? Occasional Information not available 02/08/2023 Are you currently employed? Yes Information not available 02/08/2023 Do you or have you ever used e-cigarettes or vape? Never used electronic cigarettes Information not available 02/08/2023 What is your exercise level? Occasional Information not available 01/05/2023 Mental Status None recorded. Family History Relationship Description Onset Age of this Age Resolved Age Notes LastModified by Organization Details LastModified Time Maternal Grandmother Cerebrovascu lar accident [email or web address] Not available 06/2023 15:10:54 Father Myocardial infarction [email or web address] Not available 02/08 15:10:54 Father Hypertensive disorder [email or web address] Not available 2022 15:10:54 Father Heart disease [email or web address] Not available 2022 15:10:54 Medical History Condition Response Other Cancer N High Blood Pressure N Colon Cancer N Cytomegalovirus N Hyperthyroidism N MRSA N Blood Transfusion N Herpes (HSV) N Breast Cancer N Lung Cancer N Depression N Hypothyroidism N Incontinence N Panic Attacks N Neurological Disorder N Deep Vein Thrombosis N Anxiety Disorder N Autoimmune disease N Arthritis N Tuberculosis/Positive PPD N Shingles N Polycystic Ovarian Syndrome N Cervical Cancer N Hematuria N Chlamydia N Stroke N Varicosities N Seasonal allergies N Crohn's Disease N Alzheimer's/Dementia N COPD/Emphysema N HPV/Genital Warts N Endometriosis N IBS (Irritable Bowel Syndrome) N History of Abnormal Pap N High Cholesterol N Liver Disease N Kidney Infection N Fibromyalgia N Ulcer N Kidney Disease Y HIV N Gallbladder disease N Sickle Cell Disease/Trait N Von Willebrand disease N ADD/ADHD N Eating Disorder N Anemia N Diabetes Mellitus (non-insulin dependent ) N Multiple Sclerosis N Ovarian Problems N Gonorrhea N Frequent Urinary Tract infections N Osteopenia N Headaches/migraines Y GERD (reflux) N Ovarian Cancer N Diabetes (insulin dependent) N Seizures/Epilepsy N Fibroids N Asthma N Heart Attack N Lupus N Endometrial Cancer N Rubella N Blood Clotting Disorder N Bipolar Disorder N Diabetes Mellitus (during ) N Ulcerative Colitis N Hepatitis N Heart Disease N Pulmonary Embolism N RPR N Chicken Pox N Osteoporosis N Gynecological History Statement/Question Response Flow Heavy Date of last HPV Date of LMP 12/25/2022 HPV Vaccine N Duration of Flow (days) 5 Most Recent Mammogram Current Control Method None Age at Menarche 9 Date of Last Colonoscopy Most Recent Bone Density Frequency of Cycle (Q days) 26 Date of Last Pap Smear 02/19/2017 Obstetrics History GPAL:G 2 P 1 1 0 2 Type Value Full Term 1 Premature 1 Living 2 Total 2 Past Encounters Encounter ID Performer Location Encounter Start Date Encounter Closed Date Diagnosis/Indication Diagnosis SNOMED-CT Code Diagnosis ICD10 Code Diagnosis IMO Codes [id number] [address] [place] [address] 01/05/2023 12:13:04 01/05/2023 17:55:27 Pain in pelvis 59047896 R10.2 Menorrhagia 667333532 N9 2.0 Fatigue 63890051 R53.83 Body mass index 40+ - severely obese 186863108 Z68.41 Headache 94424879 R51.9 Acute pelvic pain 916696 005 R10.2 Abnormal u terine bleeding 3169181528 9100 N93.9 --Discusse d the various causes of abnormal uterine bleeding. Including: polyps, fibroids, hyperplasi a, atypia, anovulatio n, etc.--Revi ewed the typical evaluation with labs and TVUS.--Dis cussed the possibilit y of endometria l biopsy. Biopsy procedure reviewed in detail.--R ecommended NSAID to help with cramping/b leeding.-- Briefly discussed the options available for treatment (depending on the results of evaluation ) such as hormonal treatment (OCPs, progestins ), Mirena, endometria l ablation, and surgery. Kidney disease 44508973 N08 [id number] Agus Roberson MD [facility] h [address] [place] [address] 02/08/2023 15:43:27 02/08/2023 18:02:36 Abnormal uterine bleeding 1619283354 9100 N93.9 will decide if she wants to do the ablation and tubal otherwise see in 2 months and we dont need to see for preopCOUNS ELING was provided today regarding the following topics: . You are scheduled for an endometria l ablation which may be done a few different ways and we will proceed with the type we feel seems best for you. You have a substantia l risk for complicati ons including blood transfusio n, hysterecto my and or if you become after an endometria l ablation. A the time of ablation we highly suggest permanet sterilizat ion and at least a reliable long acting contracept jasiel. Risks of surgery discussed which include: infection, undesirabl e result with continued bleeding, cramping or pain, possibly leading to hysterecto my; electrolyt e imbalance which could lead to a seizure; perforatio n of uterine wall or transfer of energy through the uterine wall leading to damage to adjacent structures such as bowel and bladder; blood clots. discussed lysteda Body mass index 40+ - severely obese 343171463 Z68.41 COUNSELING was provided today regarding the following topics: healthy eating habits. Patient education given on weight management ., regular exercise. Patient handout given on Fitness, crossfit exercise emphasized . Instructed to strictly limit food calories to 12 oz/day and processed starches., and Instructed to stop the prescribed medication immediatel y if you experience chest pain or shortness of breath.. RECOMMENDA TIONS given include: a graduated exercise program ( 4-5 days per week ), stress reduction, You should follow the recommenda tions for fluid calories, limit processed starches, and diet caloric intake recommenda tions., and Encouraged at least 6 hours of sleep per night.. stressed importance of weight loss. Download cognitive therapy APPs ([facility] [employer] Model Builder, Kishan) FOLLOW-UP: Schedule a follow-up visit in 1 month. Health Concerns Section Related Observation LastModified by Organization Detai ls LastModified Time None Recorded Concern Status LastModified by Organization Details LastModified Time None Recorded Advance Directives Directive None Recorded Payers Insurance Date Sequence Insurance Name Policy Number Policy Buitrago Covered Member ID Buitrago Member ID Guarantor Name 02/14/2023 1 [facility] [id number] Chapo Metcalf Lynch [id number] Rasheeda [employer] Notes Date Note Type Note Provider Name and Address Organization Details Recorded Time 01/05/2023 text/html Pelvic PainRepor deejay by Patient[facility] as noted in the HPI was diagnosed with a kidney disease after last baby. large blood clots with every period. a lot of pain, has a lot of cysts. feels really tired all the time. tried to loose weight to see if that helped, only loss 15 pounds. feels like its hard to loose weight. loss of labio. never has the feeling for sex. sleeping is hard. feels very anxious, feels like is she up and down. sometimes gets headaches, last up to 3 days. stated she feels when she ovulates. OSWALDO SCHMITT- [address] [place], [address], [employer] 01/05/2023 16:00:33 02/08/2023 text/html ROS as noted in the HPI Irregular bleedinglarge blood clots with every period. a lot of pain, has a lot of cysts. feels really tired all the time. loss of labio. never has the feeling for sex. sleeping is hard. feels very anxious, feels like is she up and down. sometimes gets headaches, last up to 3 days. stated she feels when she ovulates. Agus Roberson MD [facility] [place], [address], [employer] 02/08/2023 17:35:14 OBGyn Episode No OBEpisode recorded.
--- OUTSIDE RECORDS SUMMARY | 2025-05-28 01:39 | XMS_ITS | Clinical Summary ---
Author Organization [facility] Address [address] [place] [address] Care Team Providers Care Piercing Mill Operator Name Role Phone Unavailable Primary Care Provider Unavailabl e Source Comments [facility],non-owned Affiliates and Associated Physician Practices is amultiple site organization consisting of ambulatory clinics and hospital sitesin [place], [place], [place] and [place]. This disclosure is being madepursuant to the Care Everywhere program and may not contain all information available regarding this patient. 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 Gender Identity Not on file Sexual Orientation Not on file Plan of Treatment Health Maintenance Due Date Last Done Comments LIPID TESTING 1984 MAMMOGRAM 1984 HIV SCREENING 1999 HEPATITIS C SCREENING 06/16/2002 HEPATITIS B VACCINE (1 of 3 - 19+ 3-dose series) 2003 HPV VACCINE (1 - 3-dose SCDM series) 2011 DEPRESSION SCREENING 07/31/2024 COVID-19 VACCINE ( - 2023-2 5 season) 2025 INFLUENZA VACCINE (#1) 2025 DTAP/TDAP/TD VACCINES (2 - T d or Tdap) 10/10/2027 10/09/2017 ZOSTER VACCINE (1 of 2) 2034 HIB VACCINE Aged Out No longer eligi ble based on patient's age to complete this topic MENINGOCOCCAL (Group B) VACC INE SHARED DECISION-MAKING Aged Out No longer eligibl e based on patient's age to complete this topic MENINGOCOCCAL GROUPS A/C/Y/W VACCINE Aged Out No longer eligible b ased on patient's age to complete this topic PNEUMOCOCCAL VACCINE Aged Out No long er eligible based on patient's age to complete this topic Insurance [facility]
--- OUTSIDE RECORDS SUMMARY | 2025-05-28 01:39 | XMS_ITS | Encounter Summary ---
Author Organization [facility] Care Team Providers Care Crepe Machine Operator Name Role Phone No, Physician Primary Care Provider [phone] Chapo Angel DO Primary Care Provider + Chapo Angel DO Primary Care Provider + Lisa Barker MD Primary Care Provider [phone] Chapo Angel DO Primary Care Provider + Encounter Details Date Type Department Care Team (Latest Contact Info) Description 11/04/2017 Orders Only [facility] ProviderAndres MD [address] [place] [id number] Social History Tobacco Use Types Packs/Day [...] Date/Time Associated Diagnosis Comments SCAN - PATHOLOGY 11/04/2017 12:0 0 AM CDT documented in this encounter Results * SCAN - PATHOLOGY (11/04/2017 12:00 AM CDT) Narrative 11/04/2017 12:00 AM CDT Ordered by an unspecified provider. Historical Provider Final Res ult documented in this encounter Visit Diagnoses Not on filedocumented in this encounter Additional Health Concerns Infection Onset Date Last Indicated Resolved Time COVID: Suspected 05/04/2024 05/04/2024 05/04/2024 2:56 PM CDT documented as of this encounter Care Teams Crepe Machine Operator Relationship Specialty Start Date End Date No, Physician PCP - General 03/14/18 01/23/19 Chapo Angel DO PCP - General 01/25/19 02/20/20 Chapo Angel DO PCP - General 01/24/19 01/24/19 Lisa Barker MD PCP - General 02/21/20 07/03/20 Chapo Angel DO PCP - General 07/04/20 documented as of this encounter
[2025-05-28] MEDS: ACETAMINOPHEN 500 MG TABLET 1000 MG PO (06:15)
[2025-05-28] MEDS: LACTATED RINGERS 1,000 ML 30 ML IV CONT ×2 (06:45→08:34)
[2025-05-28] MEDS: KETOROLAC 15 MG/ML VIAL (*BKC) IV PUSH (06:46)
--- NOTE | 2025-05-28 07:04 | WPDANESEPPF ---
Anes - Initial Pre Proc Eval Procedure: Operation Date: 05/28/25 07:30 Proposed Procedures p Hysteroscopy with Nevaeh Endometrial Ablation - Rui Pepper MD s Laparoscopic Bilateral Salpingectomy - Rui Pepper MD Date/Time: 05/28/25 07:04 Surgeon: Rui Pepper MD Pre Op Diagnosis: menorrhagia with reg cycle Patient Data Age: 39 Gender: F Height: 1.7 m Weight: 106.4 kg Last Vital Signs Temp 37.0 C 05/28/25 06:41 Pulse 72 05/28/25 06:41 Resp 16 05/28/25 06:41 BP 119/65 05/28/25 06:41 Pulse Ox 98 05/28/25 06:41 O2 Del Method Room Air 05/28/25 06:41 Allergies Allergy/AdvReac Type Severity Reaction Status Date / Time No Known Allergies Allergy Verified 05/21/25 10:59 Home Medications ?Medication ?Instructions ?Recorded ?Confirmed ?Type Lactobacillus rhamnosus GG 15 1 cap PO DAILY 06/24/22 05/21/25 History billion cell sprinkle capsule (Culturelle) cholecalciferol (vitamin D3) 25 25 mcg PO DAILY 06/24/22 05/21/25 History mcg (1,000 unit) chewable tablet progesterone micronized 200 mg 200 mg PO HS 05/21/25 05/21/25 History capsule semaglutide 2 mg/dose (8 mg/3 mL) 2 mg subcut WEEKLY 05/21/25 05/21/25 History subcutaneous pen injector (Ozempic) thyroid (pork) 60 mg tablet 60 mg PO DAILY 05/21/25 05/21/25 History (Ceiba Thyroid) Patient hx anesthesia problems: none Family hx anesthesia problems: none Results Review: All pre-operative results and documents have been reviewed as part of the pre-operative evaluation. [facility] Past Medical History Medical History No significant medical problems Surgical History Surgical History Hx of cholecystectomy 10/2020 Family History Family History Father Family history of elevated blood lipids Family history of diabetes mellitus in first degree relative Social History Social History Smoking status: Never smoker Alcohol intake: never Living arrangements: with family Spiritual care concerns: No Anes - Eval Final PreProcedure Day of Procedure 05/28/25 07:04 Patient weight: obese Heart: regular rate and rhythm Lungs: clear to auscultation Airway: Mallampati scale class II Neurological: alert and oriented Last oral intake: >/= 8 hours ASA classification: III Emergent: no Anesthetic plan: proceed Anesthesia type and monitoring: general ETT and standard monitoring Results Review: All pre-operative results and documents have been reviewed as part of the pre-operative evaluation. Informed Consent: The patient's anesthetic plan and its attendant risks and benefits were discussed with the patient/family/POA. Questions were solicited and answers provided to the satisfaction of the patient/family/POA.
--- NOTE | 2025-05-28 07:13 | PM.IMHP ---
H&P: HPI History of Present Illness Date/Time: 05/28/25 07:13 Chief Complaint: Heavy vaginal bleeding Narrative: This patient is a 39-year-old female with severe menorrhagia. We have agreed to perform hysteroscopy with endometrial ablation and laparoscopic bilateral salpingectomy. She understands risks, benefits, and alternatives. She has completed informed consent process and is ready to proceed The patient understands the details of the procedure. The procedure has been explained in detail. She understands the risks. She understands that injuries may occur that result in hospitalization, more surgery, and severe illness. She understands risk of hemorrhage and infection. She denies any chest pain or shortness of breath. She denies any nausea, vomiting, fever, chills. Review of Systems Review of Systems: All systems reviewed & are unremarkable except as noted in HPI and below Constitutional: Constitutional: Denies chills, Denies fatigue, Denies fever(s) and Denies weakness Eyes: Eyes: Denies blurry vision, Denies change in vision, Denies loss of peripheral vision, Denies loss of vision, Denies other visual disturbances and Denies eye pain ENT: Denies vertigo, Denies dizziness, Denies hearing loss, Denies mouth pain, Denies nasal obstruction, Denies neck mass and Denies neck pain Cardiovascular: Cardiovascular: Denies chest pain, Denies diaphoresis, Denies syncope, Denies leg edema and Denies dyspnea Respiratory: Respiratory: Denies chest congestion, Denies cough, Denies hemoptysis, Denies dyspnea and Denies wheezing Gastrointestinal: Gastrointestinal: Denies abdominal pain, Denies constipation, Denies diarrhea, Denies nausea and Denies vomiting Genitourinary: Genitourinary: Denies hematuria, Denies change in libido, Denies nocturia, Denies genital lesions, Denies flank pain and Denies urinary urgency Musculoskeletal: Musculoskeletal: Denies abnormal gait, Denies back pain, Denies myalgias, Denies arthralgias, Denies joint swelling, Denies muscle weakness and Denies neck pain Integumentary/Breasts: Skin/Breast: Denies swelling, Denies breast pain, Denies breast mass, Denies dry skin, Denies nipple discharge, Denies unusual bruising and Denies jaundice Neurologic: Denies Neuro-related abnormal movements, Denies Abnormal speech present, Denies abnormal gait, Denies behavioral changes, Denies confusion, Denies vertigo, Denies dizziness, Denies syncope, Denies loss of vision, Denies memory loss, Denies convulsions and Denies weakness Psychiatric: Psychiatric: Denies abnormal sleep pattern, Denies behavioral changes, Denies change in libido, Denies confusion, Denies depression, Denies anhedonia and Denies memory loss Endocrine: Endocrine: Reports no additional endocrine complaints, Denies change in libido and Denies fatigue Hematologic/Lymphatic: Hematologic/Lymphatic: Reports no additional hematologic/lymphatic complaints Allergic/Immunologic: Allergic/Immunologic: Reports no additional allergic/immunologic complaints and Denies wheezing PMFSH Past Medical History Medical History No significant medical problems Surgical History Surgical History Hx of cholecystectomy 10/2020 Family History Family History Father Family history of elevated blood lipids Family history of diabetes mellitus in first degree relative Social History Social History Smoking status: Never smoker Alcohol intake: never Living arrangements: with family Spiritual care concerns: No Meds Home Medications and Allergies Home Medications ?Medication ?Instructions ?Recorded ?Confirmed ?Type Lactobacillus rhamnosus GG 15 1 cap PO DAILY 06/24/22 05/21/25 History billion cell sprinkle capsule (Culturelle) cholecalciferol (vitamin D3) 25 25 mcg PO DAILY 06/24/22 05/21/25 History mcg (1,000 unit) chewable tablet progesterone micronized 200 mg 200 mg PO HS 05/21/25 05/21/25 History capsule semaglutide 2 mg/dose (8 mg/3 mL) 2 mg subcut WEEKLY 05/21/25 05/21/25 History subcutaneous pen injector (Ozempic) thyroid (pork) 60 mg tablet 60 mg PO DAILY 05/21/25 05/21/25 History ([place] Thyroid) Allergies Allergy/AdvReac Type Severity Reaction Status Date / Time No Known Allergies Allergy Verified 05/21/25 10:59 Vital Signs Vital Signs - 24 hr 05/28/25 06:41 Temperature 98.6 F Pulse Rate 72 Respiratory Rate 16 Blood Pressure 119/65 Pulse Oximetry 98 Oxygen Delivery Room Air Exam Const: General: cooperative, healthy appearing, comfortable and no acute distress Orientation/consciousness: oriented to person, oriented to place and oriented to time HENMT: Head: normal to inspection Ears: external ears normal Face/Nose/Sinus: Normal external nose present and normal facial exam Face and sinus: normal facial exam Eyes: General: appearance normal, both eyes and all related structures Neck: Neck: normal visual inspection, trachea midline and supple Resp: Auscultation: clear to auscultation bilaterally, no crackles, no rales, no rhonchi and no wheezes Cardio: Rate: regular rate Rhythm: regular rhythm Heart sounds: no click, no murmurs and no rubs GI: GI Palp: No abdominal tenderness, No Soft to palpation, No Tenderness to palpation present (GI) and No Palpable mass present Auscultation: normal bowel sounds Skin: General skin exam: normal color and no rashes or lesions noted Neuro: General: oriented to person, oriented to place and oriented to time Extrem: General: normal to inspection, no joint enlargement, no clubbing, cyanosis or edema, no pedal edema and no calf tenderness Psych: Appearance: grossly normal Mental Status: mental status grossly normal Speech and movement: Normal speech and movement present Assessment and Plan Assessment and plan (1) Menorrhagia: Code(s): N92.0 - Excessive and frequent menstruation with regular cycle Status: Acute Assessment and Plan: This patient is a 39-year-old female with severe menorrhagia. We have agreed to perform hysteroscopy with endometrial ablation and laparoscopic bilateral salpingectomy. She understands risks, benefits, and alternatives. She has completed informed consent process and is ready to proceed
--- NOTE | 2025-05-28 07:15 | WPDHPUPDATE1 ---
History and Physical Update Update Date/Time: 05/28/25 07:15 History and Physical has been reviewed, including an updated exam of the patient. There are NO changes in the patient's condition. Risks, benefits, and alternatives have been discussed and questions answered. Patient agrees to proceed with procedure.
--- NOTE | 2025-05-28 08:02 | S_PTH ---
PATIENT: Rasheeda Lynch LOC: [facility] U#:[id number] AGE/SX: 39/F ROOM: RE05/28/[address]: Rui Pepper MD : [id number] BED: DIS: 05/28/2025 SPEC #: [id number] RECD: 05/28/25 10:21 STATUS: NAUN REAkilah #: [id number] JAYESH: 05/28/25 08:[address]: Rui Pepper DEPT: [facility] Surgical RECD BY: Yasmine Clarke ENTERED: 05/28/25 10:22 SP TYPE: Surgical OTHR DR: UNKNOWN,DOCTOR Tissues: A - Biopsy B - Endometrial Curettings C - Fallopian Tube Bilateral Procedures: Gross and Microscopic Level 2 Hematoxylin and Eosin Stain Gross and Microscopic Level 4
--- NOTE | 2025-05-28 08:36 | W.PM.PROC2 ---
Procedure Note - Detailed Date of Procedure 05/28/25 Pre-op Diagnosis menorrhagia with reg cycle Post-op Diagnosis Same (Umbilical skin lesion) Procedure Performed Laparoscopic bilateral salpingectomy with endometrial ablation and hysteroscopy. Punch biopsy of umbilical skin lesion Surgeon Rui Pepper MD Anesthesia General Indications Menorrhagia, female sterilization Findings 2 cm diameter circular skin lesion that is raised and firm at the umbilicus. Normal pelvic anatomy with hemorrhagic corpus luteum cyst of the left ovary.. Normal vulva, vagina, cervix, endometrium Description of Procedure 4 mm [place] punch biopsy was performed at the umbilicus skin lesion. Cautery was used to make it hemostatic. It was left open and covered at the end of the procedure. Patient was taken the operating room. She has prepped draped in the dorsal lithotomy position after induction of general anesthesia. A 5 mm abdominal incision was made in left upper quadrant of the abdomen with scalpel. A 5 mm trocars inserted the intra-abdominal cavity under direct visualization of the scope. Pneumoperitoneum was achieved. A 5 mm periumbilical incision was made using a scalpel on the abdominal scan. A 5 mm trocar was inserted the intra-abdominal cavity under visualization of the scope. A 5 mm incision made left lower quadrant of the abdomen. A 5 mm trocar was inserted the intra-abdominal cavity and direct visualization of the scope. The bilateral fallopian tubes were removed. The paratubal tissue in the area of the uterus was grasped with the LigaSure cautery and transected after being cauterized. The paratubal tissue from the ovary to the uterine cornu was cauterized and transected with LigaSure cautery. This was all done in a bilateral fashion. The tube was transected at the area of the uterine cornua and the tubes was removed through the 5 mm trocar site. The pneumoperitoneum was reduced. The trocars were removed. The skin was closed with subcuticular 4 Monocryl and covered with Dermabond. Our attention was then turned to the endometrial ablation portion of the procedure. A speculum was placed in the vagina. The cervix was grasped with a tenaculum. The cervix was dilated to approximately 8 mm with Novak dilators. The hysteroscope was inserted. And the below findings were noted. All of the intrauterine surfaces were curettaged with a medium-size curette and the specimens were collected. Measurements of the cervix were taken using the uterine sound and the hysteroscope. The intrauterine cavity measurements were entered into the handpiece. The device was inserted into the intrauterine cavity and the array was expanded. The balloon cuff was inflated. When an adequate seal was formed the safety and energy cycles were initiated and completed. The array was collapsed, the balloon was deflated. The insert was withdrawn. The hysteroscope was reinserted and a well desiccated intrauterine cavity was observed. The patient was taken recovery room stable condition. Sponge lap and needle counts were correct x2. She tolerated the procedure well. Estimated Blood Loss 25 Pathology Yes Complications No immediate complications Condition Stable Disposition PACU
[2025-05-28] MEDS: oxyCODONE HCL (*CRX) 5 MG TAB IR PO (10:22)
== END 2025-05-28 11:01 | disposition home or self-care (01) ==
PROVIDERS: Visit Provider Obstetrics & Gynecology
PROC: 0U5B8ZZ Destruction of Endometrium, Via Natural or Artificial Opening Endoscopic (ICD-10-PCS; CPT 58563; principal; 2025-05-28 07:30)
PROC: (CPT 49320; 2025-05-28 07:30)
DX: N83.12 Corpus luteum cyst of left ovary (principal); L91.0 Hypertrophic scar; G89.18 Other acute postprocedural pain; E66.9 Obesity, unspecified; Z68.36 Body mass index [BMI] 36.0-36.9, adult; Z79.85 Long-term (current) use of injectable non-insulin antidiabetic drugs; Z90.49 Acquired absence of other specified parts of digestive tract
CPT/HCPCS: 58661; 58563; 11104; 88302; 88305; A9270; J1100; J1885; J2003; J2250; J2405; J2704; J3010; J7120